=== PATIENT | female | born 1960 | race Caucasian/White ===

== ENCOUNTER 2019-12-24 04:38 | Emergency (ER) | payer MEDICARE, MEDICAID, SELFPAY ==
[2019-12-24 04:43] VITALS: BP 183/93; PULSE 92; RESP 92; TEMP 36.9; O2SAT 99; BMI 29.7
--- NOTE | 2019-12-24 04:57 | PC.NURSE ---
Addendum entered by Delmi Arango RN 12/24/19 05:00: Patient also upset that social security cut her check $240 dollars causing stress. Original Note: Patient appears very anxious at this time. Crying stating that her daughter talking bad to her and not letting her see her grandkids is causing her stress and resulting in her abdominal pain. States she has a hiatal hernia
--- NOTE | 2019-12-24 05:02 | W.ED.ABDPA2 ---
Documented by User: Elkin Lu MD 12/24/19 08:04 HPI - Abdominal Pain General: Chief Complaint: Abdominal Pain Stated Complaint: ABD PAIN Time Seen by Provider: 12/24/19 04:54 Source: patient Mode of arrival: ambulatory Limitations: no limitations History of Present Illness: HPI narrative: Tasia is a 59-year-old female who states she has had upper abdominal pain for the last month. She states that she does have a history of hiatal hernia and has cramping pain. States she is also had a lot of stress is very anxious. She states her pain is intermittent in nature. She denies any worsening or improving factors. Her pain is currently a 5 out of 10. She has had no vomiting or diarrhea. MD elicited complaint: abdominal pain Pertinent past history: none Onset (ago): day(s) Location: Diffuse Severity: moderate Quality: cramping Radiation: none Associated Symptoms: Reports nausea; Denies chills, diarrhea, dysuria, fever(s) and vomiting Review of Systems Const: Denies: fever, chills, body aches or change in appetite Eyes: Denies: blurry vision or eye discomfort ENMT: Denies: throat pain or dental pain Card: Denies: chest pain Resp: Denies: shortness of breath GI: Reports: abdominal pain and nausea; Denies: vomiting or diarrhea : Denies: painful urination Musc: Denies: neck pain or back pain Skin/Breast: Denies: rash Neuro: Denies: headache Psych: Reports: anxiety; Denies: depression Cj/Lymph: Denies: easy bruising All/Imm: Denies: hives PFSH ED PFSH: Statuses (acute, chronic, etc) shown below reflect problem list status as previously entered and may not be historically accurate Social History Smoking and tobacco status: current every day smoker Physical Exam Const: COMMON NORMALS: no apparent distress, oriented x3 and healthy appearing HENMT: COMMON NORMALS: normocephalic and head/scalp atraumatic HEAD & SCALP: normocephalic and atraumatic Eye: COMMON NORMALS: PERRL and EOMs intact bilaterally PUPIL: Yes PERRL Neck/C-Spine: COMMON NORMALS: full ROM and supple Chest: COMMONS NORMALS: inspection of chest normal and palpation of chest normal Resp: COMMON NORMALS: normal respiratory effort, no retractions, no use of accessory muscles and clear to auscultation bilaterally AUSCULTATION: clear to auscultation bilaterally Cardio: COMMON NORMALS: regular rate, regular rhythm and no murmurs RATE: regular rate RHYTHM: regular rhythm GI: COMMON NORMALS: normal to inspection, nondistended, normoactive bowel sounds, soft to palpation, non-tender and no masses PALPATION: Yes soft Extremity: COMMON NORMALS: normal to inspection and full ROM Neuro: COMMON NORMALS: oriented x3, moves all extremities and no focal motor deficits Psych: COMMON NORMALS: mental status grossly normal, thought process normal and cooperative THOUGHT PROCESS: normal thought process Skin: COMMON NORMALS: no rashes or lesions noted and no wounds GENERAL SKIN EXAM: no rashes or lesions noted Course Vital Signs: Vital signs: Vital Signs Temperature 98 F 12/24/19 08:02 Pulse Rate 88 12/24/19 08:02 Respiratory Rate 20 H 12/24/19 08:02 Blood Pressure 144/104 12/24/19 08:02 Pulse Oximetry 97 12/24/19 08:02 MDM - Abdominal Pain MDM Narrative: Medical decision making narrative: Patient presents here with abdominal pain along with stress. She is well-appearing here and we will start her on Vistaril for her anxiety. She is to follow-up with her primary care doctor in 3 to [address] scan here is normal. She is to return if worsening. Lab Data: Labs: Lab Results 12/24/19 12/24/19 12/24/19 Range/Units 05:57 05:57 06:00 WBC 7.9 (4.0-10.0) 10^3/ uL RBC 4.42 (4.1-5.3) 10^6/u L Hgb 13.7 (11.5-15.3) g/dL Hct 41.5 (37.0-47.0) % MCV 93.9 (81-99) fL MCH 31.0 (28.0-34.0) pg MCHC 33.0 (30.0-36.0) g/dL RDW 12.4 (12.1-15.1) % Plt Count 183 (130-400) 10^3/c mm MPV 10.6 H (7.4-10.4) fL Neut % (Auto) 52.3 % Lymph % (Auto) 35.5 % [place] % (Auto) 9.0 % Eos % (Auto) 2.2 % Baso % (Auto) 0.6 % Neut # (Auto) 4.1 (1.8-7.7) 10^3/u L Lymph # (Auto) 2.8 (0.8-4.8) 10^3/u L [place] # (Auto) 0.7 (0.2-0.9) 10^3/u L Eos # (Auto) 0.2 (0.0-0.8) 10^3/u L Baso # (Auto) 0.1 (0.0-0.1) 10^3/u L Nucleated RBC % (a uto) 0 % Nucleated RBCs # 0.0 /100WBC Sodium 142 (136-145) mmol/L Potassium 4.6 (3.5-5.1) mmol/L Chloride 105 (98-107) mmol/L Carbon Dioxide 27 (22-29) mmol/L Anion Gap 14.6 (5-19) BUN 11 (8-23) mg/dL Creatinine 0.9 (0.5-0.9) mg/dL GFR Calculation 63.7 L (90-130) mL/min Glucose 115 H (74-106) mg/dL Calcium 10.2 (8.5-10.5) mg/dL Total Bilirubin 0.6 (0.15-1.2) mg/dL AST 27 (0-32) U/L ALT 25 (0-33) U/L Alkaline Phosphata se 118 H (35-105) IU/L Total Protein 8.2 (6.6-8.7) g/dL Albumin 4.4 (3.5-5.2) g/dL Globulin 3.8 (1.3-4.6) g/dL Lipase 8 L (13-60) U/L Urine Color Yellow (Yellow) Urine Appearance Sl hazy (CLEAR) Urine pH 8 H (5-7) Ur Specific Gravit y 1.010 (1.005-1.030) Urine Protein Neg (Negative) Urine Glucose (UA) Norm (Normal) Urine Ketones Negative (Negative) Urine Occult Blood Neg (Negative) Urine Nitrate Negative (Negative) Urine Bilirubin Neg (NEGATIVE) Urine Urobilinogen Norm (Negative) mg/dL Ur Leukocyte Lisa ase Negative (Negative) Urine RBC 0-4 H (0-2) /hpf Urine WBC 10-15 H (0-5) /hpf Ur Squamous Epith Cells 15-25 H (0-5) Amorphous Sediment 1+ Urine Bacteria 1+ H (NONE) Urine Mucus Trace Imaging Data ^: CT Abd/Pel: Radiologist's impression: [address] [place] [address] CT Scan Report Signed Patient: Tasia Askew Unit #: [id number] : 1960 Age/Sex: 59 / F ADM Date: 12/24/19 Loc: ER Room/Bed: Attending Dr: Ordering Provider/Ordering MD: Angelito Duran DO Date of Service: 12/24/19 Procedure(s): CT abdomen pelvis w con* [id number] Accession Number(s): [id number] Report Number: [id number] PROCEDURE INFORMATION: Exam: CT Abdomen And Pelvis With Contrast Exam date and time: 12/24/2019 6:30 AM Age: 59 years old Clinical indication: Abdominal pain; Acute; Prior surgery; Surgery date: 6+ months; Surgery type: Tubal; Additional info: Abd pain TECHNIQUE: Imaging protocol: Computed tomography of the abdomen and pelvis with intravenous contrast. Total DLP: 1286.68 mGy-cm Radiation optimization: All CT scans at this facility use at least one of these dose optimization techniques: automated exposure control; mA and/or kV adjustment per patient size (includes targeted exams where dose is matched to clinical indication); or iterative reconstruction. Contrast material: OMNI 300; Contrast volume: 95 ml; Contrast route: IV; COMPARISON: CT abdomen pelvis w con* [id number] 09/24/2019 12:41 PM FINDINGS: Lungs: Interstitial prominence and trace dependent airspace disease. Liver: Punctate hepatic granuloma. Gallbladder and bile ducts: No cholelithiasis or biliary ductal dilatation. Pancreas: Inhomogeneous attenuation in the pancreatic head without focal mass or ductal dilatation. Spleen: No splenomegaly. Adrenals: Unremarkable adrenals. Kidneys and ureters: Normal renal morphology. No hydronephrosis. Stomach and bowel: Mild wall thickening in the nondistended stomach. Jejunal dilatation without a focal transition zone. Prominent stool. Diverticula, without pericolonic inflammation. Appendix: No acute appendicitis. Intraperitoneal space: No significant free fluid. Vasculature: Normal caliber of the abdominal aorta. Lymph nodes: No pathologically enlarged lymph nodes. Bladder: Nondistended bladder. Reproductive: Unremarkable as visualized. Bones/joints: Osteopenia, degenerative change, ligamentous calcification, and disc bulging. Soft tissues: Calcification at the gluteal muscle attachment sites. CT/CT abdomen pelvis w con* [id number] IMPRESSION: 1. Mild wall thickening in the nondistended stomach. 2. Jejunal dilatation without a focal transition zone. 3.Additional findings as described above. Discharge Plan Discharge Patient Disposition: Home, Self-Care Clinical Impression: Anxiety Abdominal pain Qualifiers: Abdominal location: generalized Qualified Code(s): R10.84 - Generalized abdominal pain Condition: Stable Prescriptions: New Reglan 10 mg tablet 10 mg PO Q6H PRN (Reason: nausea and vomiting) Qty: 20 RF: 0 Vistaril 50 mg capsule 50 mg PO Q8H PRN (Reason: anxiety) Qty: 20 RF: 0 Discharge Orders: Discharge Order (Routine); Ordered 12/24/19 Ordered By: Elkin Lu Referrals: Kulwant Musa [Family Provider] - Discharge Diet: Advance as tolerated Discharge Activity: Resume usual activity Patient Instructions: Abdominal Pain (ED) Discharge Date/Time: 12/24/19 08:03 Coding Level of Care Code ED Intelligence Specialist for Chg Fwd Exam Problem Focused Documented by User: Angelito Duran DO 12/25/19 01:18 HPI - Abdominal Pain General: Chief Complaint: Abdominal Pain Stated Complaint: ABD PAIN Time Seen by Provider: 12/24/19 04:54 PFSH ED PFSH: Statuses (acute, chronic, etc) shown below reflect problem list status as previously entered and may not be historically accurate Social History Smoking and tobacco status: current every day smoker Course Vital Signs: Vital signs: Vital Signs Temperature 98 F 12/24/19 08:02 Pulse Rate 88 12/24/19 08:02 Respiratory Rate 20 H 02/01/20 08:02 Blood Pressure 144/104 12/24/19 08:02 Pulse Oximetry 97 12/24/19 08:02 MDM - Abdominal Pain Lab Data: Labs: Lab Results 12/24/19 12/24/19 12/24/19 Range/Units 05:57 05:57 06:00 WBC 7.9 (4.0-10.0) 10^3/ uL RBC 4.42 (4.1-5.3) 10^6/u L Hgb 13.7 (11.5-15.3) g/dL Hct 41.5 (37.0-47.0) % MCV 93.9 (81-99) fL MCH 31.0 (28.0-34.0) pg MCHC 33.0 (30.0-36.0) g/dL RDW 12.4 (12.1-15.1) % Plt Count 183 (130-400) 10^3/c mm MPV 10.6 H (7.4-10.4) fL Neut % (Auto) 52.3 % Lymph % (Auto) 35.5 % [place] % (Auto) 9.0 % Eos % (Auto) 2.2 % Baso % (Auto) 0.6 % Neut # (Auto) 4.1 (1.8-7.7) 10^3/u L Lymph # (Auto) 2.8 (0.8-4.8) 10^3/u L [place] # (Auto) 0.7 (0.2-0.9) 10^3/u L Eos # (Auto) 0.2 (0.0-0.8) 10^3/u L Baso # (Auto) 0.1 (0.0-0.1) 10^3/u L Nucleated RBC % (a uto) 0 % Nucleated RBCs # 0.0 /100WBC Sodium 142 (136-145) mmol/L Potassium 4.6 (3.5-5.1) mmol/L Chloride 105 (98-107) mmol/L Carbon Dioxide 27 (22-29) mmol/L Anion Gap 14.6 (5-19) BUN 11 (8-23) mg/dL Creatinine 0.9 (0.5-0.9) mg/dL GFR Calculation 63.7 L (90-130) mL/min Glucose 115 H (74-106) mg/dL Calcium 10.2 (8.5-10.5) mg/dL Total Bilirubin 0.6 (0.15-1.2) mg/dL AST 27 (0-32) U/L ALT 25 (0-33) U/L Alkaline Phosphata se 118 H (35-105) IU/L Total Protein 8.2 (6.6-8.7) g/dL Albumin 4.4 (3.5-5.2) g/dL Globulin 3.8 (1.3-4.6) g/dL Lipase 8 L (13-60) U/L Urine Color Yellow (Yellow) Urine Appearance Sl hazy (CLEAR) Urine pH 8 H (5-7) Ur Specific Gravit y 1.010 (1.005-1.030) Urine Protein Neg (Negative) Urine Glucose (UA) Norm (Normal) Urine Ketones Negative (Negative) Urine Occult Blood Neg (Negative) Urine Nitrate Negative (Negative) Urine Bilirubin Neg (NEGATIVE) Urine Urobilinogen Norm (Negative) mg/dL Ur Leukocyte Lisa ase Negative (Negative) Urine RBC 0-4 H (0-2) /hpf Urine WBC 10-15 H (0-5) /hpf Ur Squamous Epith Cells 15-25 H (0-5) Amorphous Sediment 1+ Urine Bacteria 1+ H (NONE) Urine Mucus Trace Discharge Plan Discharge Patient Disposition: Home, Self-Care Clinical Impression: Anxiety Abdominal pain Qualifiers: Abdominal location: generalized Qualified Code(s): R10.84 - Generalized abdominal pain Condition: Stable Prescriptions: New Reglan 10 mg tablet 10 mg PO Q6H PRN (Reason: nausea and vomiting) Qty: 20 RF: 0 Vistaril 50 mg capsule 50 mg PO Q8H PRN (Reason: anxiety) Qty: 20 RF: 0 Discharge Orders: Discharge Order (Routine); Ordered 12/24/19 Ordered By: Elkin Lu Referrals: Kulwant Musa [Family Provider] - Discharge Diet: Advance as tolerated Discharge Activity: Resume usual activity Patient Instructions: Abdominal Pain (ED) Discharge Date/Time: 12/24/19 08:03 Coding Level of Care Code ED Intelligence Specialist for Chg Fwd Exam Problem Focused
--- NOTE | 2019-12-24 05:50 | CTR_ITS ---
PROCEDURE INFORMATION: Exam: CT Abdomen And Pelvis With Contrast Exam date and time: 12/24/2019 6:30 AM Age: 59 years old Clinical indication: Abdominal pain; Acute; Prior surgery; Surgery date: 6+ months; Surgery type: Tubal; Additional info: Abd pain TECHNIQUE: Imaging protocol: Computed tomography of the abdomen and pelvis with intravenous contrast. Total DLP: 1286.68 mGy-cm Radiation optimization: All CT scans at this facility use at least one of these dose optimization techniques: automated exposure control; mA and/or kV adjustment per patient size (includes targeted exams where dose is matched to clinical indication); or iterative reconstruction. Contrast material: OMNI 300; Contrast volume: 95 ml; Contrast route: IV; COMPARISON: CT abdomen pelvis w con* [id number] 09/24/2019 12:41 PM FINDINGS: Lungs: Interstitial prominence and trace dependent airspace disease. Liver: Punctate hepatic granuloma. Gallbladder and bile ducts: No cholelithiasis or biliary ductal dilatation. Pancreas: Inhomogeneous attenuation in the pancreatic head without focal mass or ductal dilatation. Spleen: No splenomegaly. Adrenals: Unremarkable adrenals. Kidneys and ureters: Normal renal morphology. No hydronephrosis. Stomach and bowel: Mild wall thickening in the nondistended stomach. Jejunal dilatation without a focal transition zone. Prominent stool. Diverticula, without pericolonic inflammation. Appendix: No acute appendicitis. Intraperitoneal space: No significant free fluid. Vasculature: Normal caliber of the abdominal aorta. Lymph nodes: No pathologically enlarged lymph nodes. Bladder: Nondistended bladder. Reproductive: Unremarkable as visualized. Bones/joints: Osteopenia, degenerative change, ligamentous calcification, and disc bulging. Soft tissues: Calcification at the gluteal muscle attachment sites. CT/CT abdomen pelvis w con* [id number] IMPRESSION: 1. Mild wall thickening in the nondistended stomach. 2. Jejunal dilatation without a focal transition zone. 3.Additional findings as described above. Radiation Dose CTDIVOL = (mGy): DLP = 1286.68 (mGy-cm)
[2019-12-24 05:57] VITALS: RESP 18
[2019-12-24] MEDS: ondansetron 2 mg/ML SDV 2 mL 4 MG IVP (05:57)
[2019-12-24] MEDS: morphine 4 mg/mL SDV 1 mL IVP (05:57)
[2019-12-24 06:02] LABS: Basophils # 0.1 10^3/uL (0.0-0.1); Basophils % 0.6 %; Eosinophils # 0.2 10^3/uL (0.0-0.8); Eosinophils % 2.2 %; Hematocrit 41.5 % (37.0-47.0); Hemoglobin 13.7 g/dL (11.5-15.3); Lymphocytes # 2.8 10^3/uL (0.8-4.8); Lymphocytes % 35.5 %; Mean Corpuscular Volume 93.9 fL (81-99); Mean Platelet Volume 10.6 fL (7.4-10.4); Monocytes # 0.7 10^3/uL (0.2-0.9); Neutrophils # 4.1 10^3/uL (1.8-7.7); Neutrophils % 52.3 %; Nucleated Red Blood Cells % 0 %; Platelet Count 183 10^3/cmm (130-400); Red Blood Count 4.42 10^6/uL (4.1-5.3); Red Cell Distribution Width 12.4 % (12.1-15.1); White Blood Count 7.9 10^3/uL (4.0-10.0)
[2019-12-24 06:21] LABS: Alanine Aminotransferase 25 U/L (0-33); Albumin Level 4.4 g/dL (3.5-5.2); Alkaline Phosphatase 118 IU/L (35-105); Anion Gap 14.6 (5-19); Aspartate Amino Transferase 27 U/L (0-32); Blood Urea Nitrogen 11 mg/dL (8-23); Calcium 10.2 mg/dL (8.5-10.5); Carbon Dioxide 27 mmol/L (22-29); Chloride 105 mmol/L (98-107); Globulin 3.8 g/dL (1.3-4.6); Glomerular Filtration Rate 63.7 mL/min (90-130); Glucose 115 mg/dL (74-106); Potassium 4.6 mmol/L (3.5-5.1); Sodium 142 mmol/L (136-145); Total Bilirubin 0.6 mg/dL (0.15-1.2); Total Protein 8.2 g/dL (6.6-8.7)
[2019-12-24 06:44] LABS: Lipase 8 U/L (13-60)
[2019-12-24] MEDS: iohexol 300 mg/mL 100 mL Btl IV (06:51)
[2019-12-24 07:06] LABS: Urine Appearance SL Hazy (CLEAR); Urine Color Yellow (Yellow); pH Urine 8 (5-7)
[2019-12-24 07:07] LABS: Add Urine Microscopic? YES; Bilirubin Urine Neg (NEGATIVE); Blood Urine Neg (Negative); Glucose Urine UA Norm (Normal); Ketones Urine Negative (Negative); Leukocyte Esterase Urine Negative (Negative); Nitrate Urine Negative (Negative); Protein Urine Neg (Negative); Urobilinogen Urine Norm (Negative)
[2019-12-24 07:09] LABS: Mucus Urine TRACE; RBC Urine 0-4 /hpf (0-2)
[2019-12-24 07:10] LABS: Add Urine Culture? No; Amorphous Sediment Urine 1+; Bacteria Urine 1+; Squamous Epithelial Cell Urine 15-25 (0-5)
--- NOTE | 2019-12-24 07:21 | PC.NURSE ---
Pt ambulated to and from restroom with steady gait at this time.
[2019-12-24 08:02] VITALS: BP 144/104; PULSE 88; RESP 20; TEMP 36.6; O2SAT 97
== END 2019-12-24 08:03 | disposition home or self-care (01) ==
PROVIDERS: Emergency Medicine; Emergency Provider Emergency Medicine; Family Provider Family Medicine
DX: R10.84 Generalized abdominal pain (principal); F41.9 Anxiety disorder, unspecified; F17.210 Nicotine dependence, cigarettes, uncomplicated
CPT/HCPCS: 74177; 80053; 81001; 83690; 85025; 96374; 96375; 99283; A9270; J2270; J2405; Q9967

== ENCOUNTER 2019-12-26 12:13 | Emergency (ER) | payer MEDICARE, SELFPAY ==
[2019-12-26 12:17] VITALS: BP 193/114; PULSE 86; RESP 20; TEMP 36.8; O2SAT 97; BMI 29.0
--- NOTE | 2019-12-26 14:11 | ECG_ITS ---
Measurements Intervals [place] Rate: 77 P: 62 TX: 175 QRS: 51 QRSD: 84 T: 35 QT: 376 QTc: 427 SINUS RHYTHM Compared to ECG 09/04/2019 16:08:00 No significant changes Electronically Signed On 12-26-2019 21:01:44 ROTARY EN[employer]ELOPE MACHINE OPERATOR by Max Levine M.D. [email or web address]
--- NOTE | 2019-12-26 14:11 | XRR_ITS ---
PROCEDURE INFORMATION: Exam: XR Chest, 1 View Exam date and time: 12/26/2019 3:28 PM Age: 59 years old Clinical indication: Type not specified; Patient HX: Chest pain, started this am; Additional info: Cp TECHNIQUE: Imaging protocol: XR of the chest Views: 1 view. COMPARISON: CR Chest 1 [place] [id number] 09/04/2019 1:21 PM FINDINGS: Lungs: Unremarkable. No consolidation. Pleural space: Unremarkable. No pleural effusion. No pneumothorax. Heart/Mediastinum: Unremarkable. No cardiomegaly. Bones/joints: Unremarkable. XR/XR chest 1V portable [id number] IMPRESSION: No acute findings.
[2019-12-26 14:38] LABS: Basophils # 0.1 10^3/uL (0.0-0.1); Basophils % 0.8 %; Eosinophils # 0.2 10^3/uL (0.0-0.8); Eosinophils % 2.7 %; Hematocrit 40.8 % (37.0-47.0); Hemoglobin 13.4 g/dL (11.5-15.3); Lymphocytes # 1.9 10^3/uL (0.8-4.8); Lymphocytes % 26.3 %; Mean Corpuscular HGB Conc 32.8 g/dL (30.0-36.0); Mean Corpuscular Hemoglobin 30.9 pg (28.0-34.0); Mean Corpuscular Volume 94.2 fL (81-99); Mean Platelet Volume 10.6 fL (7.4-10.4); Monocytes # 0.6 10^3/uL (0.2-0.9); Monocytes % 8.6 %; Neutrophils # 4.5 10^3/uL (1.8-7.7); Neutrophils % 61.1 %; Nucleated Red Blood Cells % 0 %; Platelet Count 182 10^3/cmm (130-400); Red Blood Count 4.33 10^6/uL (4.1-5.3); Red Cell Distribution Width 11.9 % (12.1-15.1); White Blood Count 7.3 10^3/uL (4.0-10.0)
[2019-12-26 14:52] LABS: Alanine Aminotransferase 18 U/L (0-33); Alkaline Phosphatase 116 IU/L (35-105); Aspartate Amino Transferase 19 U/L (0-32); Blood Urea Nitrogen 8 mg/dL (8-23); Calcium 9.4 mg/dL (8.5-10.5); Carbon Dioxide 26 mmol/L (22-29); Chloride 101 mmol/L (98-107); Globulin 3.9 g/dL (1.3-4.6); Glomerular Filtration Rate 56.4 mL/min (90-130); Glucose 128 mg/dL (74-106); Lipase 10 U/L (13-60); Sodium 138 mmol/L (136-145); Total Bilirubin 1.2 mg/dL (0.15-1.2); Total Protein 7.9 g/dL (6.6-8.7); Troponin(5th) Baseline 10 ng/mL (0-10)
== END 2019-12-26 16:30 | disposition left against medical advice (07) ==
LOC: ER 14:52
PROVIDERS: Emergency Medicine; Emergency Provider Registered Nurse; Family Provider Family Medicine
DX: Z53.21 Procedure and treatment not carried out due to patient leaving prior to being seen by health care provider (principal)
CPT/HCPCS: 36415; 71045; 80053; 83690; 84484; 85025; 93005; 99281; 99283

== ENCOUNTER 2020-04-25 11:26 | Emergency (ER) | payer MEDICARE, SELFPAY ==
[2020-04-25 11:38] VITALS: BP 199/120; PULSE 73; RESP 18; TEMP 36.7; O2SAT 96; BMI 33.6
[2020-04-25 12:11] VITALS: BP 170/97; PULSE 71; RESP 18; O2SAT 97
--- NOTE | 2020-04-25 12:11 | XR_ITS ---
WS: [id number] [place] [id number] REASON FOR EXAM: trauma FINDINGS: Degenerate changes of the acromioclavicular joint. The glenoid humeral articulations normal. The scapula and clavicle are normal. XR/[place] [id number] IMPRESSION: Degenerate changes of the acromioclavicular joint.
--- NOTE | 2020-04-25 12:11 | XR_ITS ---
WS: [id number] XR knee LT 3V* [id number] REASON FOR EXAM: trauma FINDINGS: The meniscal spaces are normal. The patella shows degenerates spurring. The patella femoral articulations are normal. The patella tibial spaces are normal. There is no fractures the femur, patella, tibia or fibula. XR/XR knee LT 3V* [id number] IMPRESSION: Mild osteoarthritic changes of the patella.
--- NOTE | 2020-04-25 12:11 | XR_ITS ---
WS: [id number] XR shoulder LT min 2V* [id number] REASON FOR EXAM: trauma FINDINGS: Hypertrophy of the acromioclavicular joint. The glenoid humeral articulations are normal. The clavicle shows no fractures. The body of the scapula was normal. XR/XR shoulder LT min 2V* [id number] IMPRESSION: Degenerate changes of the acromioclavicular joint.
--- NOTE | 2020-04-25 12:11 | XR_ITS ---
WS: [id number] [place] [id number] REASON FOR EXAM: trauma FINDINGS: Views of the left humerus show no fractures or displacement the overall alignment is satisf actory. No soft tissue masses or calcification. XR/[place] [id number] IMPRESSION: Negative left humerus.
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
[2020-04-25] MEDS: ketorolac 30 mg/mL INJ 60 MG IM (12:19)
[2020-04-25 12:35] LABS: Basophils % 0.5 %; Eosinophils # 0.1 10^3/uL (0.0-0.8); Eosinophils % 0.8 %; Hematocrit 43.2 % (37.0-47.0); Hemoglobin 13.9 g/dL (11.5-15.3); Lymphocytes # 1.8 10^3/uL (0.8-4.8); Lymphocytes % 21.2 %; Mean Corpuscular HGB Conc 32.2 g/dL (30.0-36.0); Mean Corpuscular Hemoglobin 31.5 pg (28.0-34.0); Mean Platelet Volume 10.7 fL (7.4-10.4); Monocytes # 0.6 10^3/uL (0.2-0.9); Monocytes % 6.6 %; Neutrophils # 6.1 10^3/uL (1.8-7.7); Neutrophils % 70.6 %; Nucleated Red Blood Cells % 0 %; Platelet Count 169 10^3/cmm (130-400); Red Blood Count 4.41 10^6/uL (4.1-5.3); Red Cell Distribution Width 13.2 % (12.1-15.1); White Blood Count 8.6 10^3/uL (4.0-10.0)
[2020-04-25 12:50] LABS: Alanine Aminotransferase 16 U/L (0-33); Albumin Level 4.2 g/dL (3.5-5.2); Alkaline Phosphatase 116 IU/L (35-105); Anion Gap 15.9 (5-19); Aspartate Amino Transferase 18 U/L (0-32); Blood Urea Nitrogen 12 mg/dL (8-23); Calcium 9.4 mg/dL (8.5-10.5); Carbon Dioxide 24 mmol/L (22-29); Chloride 105 mmol/L (98-107); Globulin 3.3 g/dL (1.3-4.6); Glomerular Filtration Rate 72.7 mL/min (90-130); Glucose 120 mg/dL (65-115); Osmolality Calculated 289 mOsm/kg (285-295); Potassium 3.9 mmol/L (3.5-5.1); Sodium 141 mmol/L (136-145); Total Bilirubin 1.1 mg/dL (0.15-1.2); Total Protein 7.5 g/dL (6.6-8.7)
[2020-04-25 13:47] VITALS: BP 161/103; PULSE 65; RESP 18; O2SAT 96
== END 2020-04-25 13:48 | disposition home or self-care (01) ==
PROVIDERS: Emergency Provider Family Medicine; PCP Family Medicine
DX: S43.402A Unspecified sprain of left shoulder joint, initial encounter (principal); S83.92XA Sprain of unspecified site of left knee, initial encounter; Y04.2XXA Assault by strike against or bumped into by another person, initial encounter; F17.210 Nicotine dependence, cigarettes, uncomplicated
CPT/HCPCS: 12345; 36415; 73000; 73030; 73060; 73562; 80053; 85025; 96372; 99282; 99283; J1885

== ENCOUNTER 2020-07-14 09:54 | Emergency (ER) | payer MEDICARE, SELFPAY ==
[2020-07-14] VITALS (7 sets, daily range): BP systolic 136–162; BP diastolic 70–90; PULSE 64–76; RESP 16–18; TEMP 36.4–36.9; O2SAT 96–99; BMI 34.4
--- NOTE | 2020-07-14 10:15 | ED_ITS ---
HPI - Female Genitourinary General: Chief complaint: Urogenital-Female Stated complaint: dysuria, flank pain Time Seen by Provider: 07/14/20 10:13 Source: patient Mode of arrival: ambulatory Limitations: no limitations History of Present Illness: HPI Narrative: 3 weeks difficulty with urinating, increasing symptoms MD elicited complaint: dysuria and UTI Associated symptoms: Reports nausea (intermittent ) Review of Systems General: Reports: 10 or more systems reviewed and unremarkable except in HPI and below Const: Reports: fever(s) (intermittent, low grade x 2 nights) GI: Reports: nausea (intermittent ) : Reports: flank pain (left flank ), difficulty voiding, dysuria, urinary frequency and urinary urgency PFS ED PFSH: Medical History Grossman esophagus Family History Mother Diabetes Social History Smoking and tobacco status: current every day smoker Alcohol intake: former Substance/Drug Use: former History of recent travel: No Current gender identity: Female Physical Exam Const: COMMON NORMALS: no acute distress, patient oriented x3, no limitations and alert GENERAL APPEARANCE: cooperative and comfortable ORIENTATION/CONSCIOUSNESS: Yes awake, Yes oriented to person, Yes oriented to place and Yes oriented to time HENMT: COMMON NORMALS: normocephalic, atraumatic, external ears normal, EAC's normal, TM's normal bilaterally and Normal external nose present HEAD & SCALP: normal to inspection, normocephalic and atraumatic FACE & SINUS: normal facial exam, sinuses nontender and face symmetric NOSE: Normal external nose present, Normal nares present and No nasal discharge present EXTERNAL EAR: Yes external ears normal EXTERNAL AUDITORY CANAL: EAC's normal TYMPANIC MEMBRANE: TM's normal bilaterally MOUTH: Normal oral and palatal mucosa present, lip normal and tongue normal THROAT: posterior oropharynx normal, tonsils normal and uvula midline Eye: COMMON NORMALS: Equal, round and reactive pupils present, EOMs intact bilaterally and conjunctivae normal GENERAL EYE: appearance normal, both eyes and all related structures and normal light reflex EYELID: eyelids normal CONJUNCTIVA: Yes conjunctivae normal PUPIL: Yes Equal, round and reactive pupils present EOM: Yes EOM abnormal DIRECT OPHTHALMOSCOPY: Yes normal l ight reflex Neck/C-Spine: COMMON NORMALS: full ROM, no lymphadenopathy, supple, no meningeal signs, no JVD and Thyroid normal GENERAL: Yes normal visual inspection THYROID: Thyroid normal CERVICAL SPINE: Yes cervical ROM normal and Yes normal cervical lordosis Lymph: LYMPHATIC: no lymphadenopathy noted Chest: COMMONS NORMALS: normal inspection of the chest and normal palpation of entire chest wall Resp: COMMON NORMALS: normal respiratory effort, No retractions and clear to auscultation bilaterally AUSCULTATION: clear to auscultation bilaterally Cardio: COMMON NORMALS: no JVD, regular rate, regular rhythm, S1 normal heart sound present, S2 normal heart sound present, No gallops present (Cardio), No clicks present (Cardio), No murmurs present (Cardio), No rub (Cardio) and Peripheral pulses 2+ throughout RATE: regular rate RHYTHM: regular rhythm HEART SOUNDS: S1 normal heart sound present and S2 normal heart sound present PERIPHERAL PULSES: Peripheral pulses 2+ throughout GI: COMMON NORMALS: Normal to inspection, nondistended, normoactive bowel sounds present, Soft to palpation, non-tender and no masses PALPATION: Yes Soft to palpation : COMMON NORMALS: Yes no CVA tenderness and Yes normal external appearance BLADDER/KIDNEY EXAM: Yes no CVA tenderness Back/Pelvis: COMMON NORMALS: no CVA tenderness, thoracic and lumbar spine normal to inspection, no thoracic nor lumbar tenderness and thoraco-lumbar ROM normal Extremity: COMMON NORMALS: normal to inspection, full ROM, capillary refill normal, no joint enlargement, no clubbing, cyanosis or edema, no calf tenderness and no pedal edema GENERAL: Yes normal exam except as noted Neuro: COMMON NORMALS: patient oriented x3, moves all extremities, no focal motor deficits, no sensory deficits noted and gait normal SENSORIUM/ORIENTATION: Yes alert, Yes oriented to person, Yes oriented to place and Yes oriented to time MENINGEAL SIGNS: Yes no meningeal signs Psych: COMMON NORMALS: mental status grossly normal, Normal thought process present, cooperative, normal affect, speech normal and activity/motor behavior normal SPEECH: Yes normal speech THOUGHT PROCESS: Normal thought process present Skin: COMMON NORMALS: no rashes or lesions noted, no wounds and turgor normal GENERAL SKIN EXAM: no rashes or lesions noted and turgor normal Course ED course: Pt complains of dysuria and urgency with voiding increasing x 3 weeks and not improving despite home remedies with less soda and more water and cranberry juice. Urine and labs ordered; IV fluids and pain medication. Reevaluation(s): Reevaluation #1: CBC labs do not indicate infection; urine sent for culture and will treat empirically. US renal to rule out any acute blockages or stones due to increasing left flank pain. Creatinine 1.0./GFR 56. Time: 12:12 Reevaluation #2: Renal US are normal bilaterally. Will proceed with DC and treatment for UTI while waiting for culture. Increase fluid intake. Time: 14:01 Vital Signs: Vital signs: Vital Signs Temperature 98.4 F 07/14/20 13:12 Pulse Rate 64 07/14/20 13:12 Respiratory Rate 18 07/14/20 13:12 Blood Pressure 144/70 07/14/20 13:12 Pulse Oximetry 99 07/14/20 13:12 MDM - Female Lab Data: Labs: Lab Results 07/14/20 07/14/20 07/14/20 Range/Units 10:21 10:21 10:45 WBC 7.8 (4.0-10.0) 10^3/ uL RBC 4.70 (4.1-5.3) 10^6/u L Hgb 14.6 (11.5-15.3) g/dL Hct 44.8 (37.0-47.0) % MCV 95.3 (81-99) fL MCH 31.1 (28.0-34.0) pg MCHC 32.6 (30.0-36.0) g/dL RDW 11.9 L (12.1-15.1) % Plt Count 167 (130-400) 10^3/c mm MPV 11.1 H (7.4-10.4) fL Neut % (Auto) 59.0 % Lymph % (Auto) 29.8 % [place] % (Auto) 8.0 % Eos % (Auto) 1.9 % Baso % (Auto) 0.9 % Neut # (Auto) 4.62 (1.8-7.7) 10^3/u L Lymph # (Auto) 2.3 (0.8-4.8) 10^3/u L [place] # (Auto) 0.6 (0.2-0.9) 10^3/u L Eos # (Auto) 0.2 (0.0-0.8) 10^3/u L Baso # (Auto) 0.1 (0.0-0.1) 10^3/u L Nucleated RBC % (a uto) 0 % Nucleated RBCs # 0.0 /100WBC Sodium 136 (136-145) mmol/L Potassium 4.3 (3.5-5.1) mmol/L Chloride 103 (98-107) mmol/L Carbon Dioxide 24 (22-29) mmol/L Anion Gap 13.3 (5-19) BUN 21 (8-23) mg/dL Creatinine 1.0 H (0.5-0.9) mg/dL GFR Calculation 56.2 L (90-130) mL/min Glucose 117 H (65-115) mg/dL Calculated Osmolal ity 280 L (285-295) mOsm/k g Calcium 10.0 (8.5-10.5) mg/dL Total Bilirubin 1.4 H (0.15-1.2) mg/dL AST 18 (0-32) U/L ALT 20 (0-33) U/L Alkaline Phosphata se 113 H (35-105) IU/L Total Protein 7.8 (6.6-8.7) g/dL Albumin 4.5 (3.5-5.2) g/dL Globulin 3.3 (1.3-4.6) g/dL Urine Color Yellow (Yellow) Urine Appearance Clear (CLEAR) Urine pH 5 (5-7) Ur Specific Gravit y 1.020 (1.005-1.030) Urine Protein Neg (Negative) Urine Glucose (UA) Norm (Normal) Urine Ketones Negative (Negative) Urine Blood 2+ H (Negative) Urine Nitrate Negative (Negative) Urine Bilirubin Neg (NEGATIVE) Urine Urobilinogen Norm (Negative) mg/dL Ur Leukocyte Lisa ase Negative (Negative) Urine RBC 0-4 H (0-2) /hpf Urine WBC 5-10 H (0-5) /hpf Ur Squamous Epith Cells 5-10 H (0-5) Amorphous Sediment Not Reportable Urine Bacteria 1+ H (NONE) Discharge Plan Discharge Patient Disposition: Home Clinical Impression: Urinary tract infection Condition: Stable Prescriptions: New nitrofurantoin monohyd/m-cryst [Macrobid] 100 mg capsule 100 mg PO BID 7 Days Qty: 14 RF: 0 phenazopyridine [Pyridium] 200 mg tablet 200 mg PO Q8H Qty: 10 RF: 0 No Action Linzess 290 mcg capsule 290 mcg PO DAILY Qty: 90 RF: 3 Vistaril 50 mg capsule 50 mg PO Q8H PRN (Reason: anxiety) Qty: 90 RF: 0 lisinopril 40 mg tablet 40 mg PO DAILY RF: 0 metoclopramide HCl [Reglan] 10 mg tablet 10 mg PO Q6H PRN (Reason: nausea and vomiting) Qty: 20 RF: 0 Referrals: Kulwant Musa [Primary Care Provider] - Discharge Diet: Usual diet Discharge Activity: Resume usual activity Activity Restrictions/Additional Instructions: Please increase clear fluids and follow up with PCP. Coding Level of Care Code ED Gravity Prospecting Observer for Geovanna Fwd Exam Comprehensive
[2020-07-14 10:27] LABS: Basophils # 0.1 10^3/uL (0.0-0.1); Basophils % 0.9 %; Eosinophils # 0.2 10^3/uL (0.0-0.8); Eosinophils % 1.9 %; Hematocrit 44.8 % (37.0-47.0); Hemoglobin 14.6 g/dL (11.5-15.3); Lymphocytes # 2.3 10^3/uL (0.8-4.8); Lymphocytes % 29.8 %; Mean Corpuscular HGB Conc 32.6 g/dL (30.0-36.0); Mean Corpuscular Hemoglobin 31.1 pg (28.0-34.0); Mean Corpuscular Volume 95.3 fL (81-99); Mean Platelet Volume 11.1 fL (7.4-10.4); Monocytes # 0.6 10^3/uL (0.2-0.9); Neutrophils # 4.62 10^3/uL (1.8-7.7); Nucleated Red Blood Cells % 0 %; Platelet Count 167 10^3/cmm (130-400); Red Cell Distribution Width 11.9 % (12.1-15.1); White Blood Count 7.8 10^3/uL (4.0-10.0)
[2020-07-14 10:49] LABS: Alanine Aminotransferase 20 U/L (0-33); Albumin Level 4.5 g/dL (3.5-5.2); Alkaline Phosphatase 113 IU/L (35-105); Anion Gap 13.3 (5-19); Aspartate Amino Transferase 18 U/L (0-32); Blood Urea Nitrogen 21 mg/dL (8-23); Carbon Dioxide 24 mmol/L (22-29); Chloride 103 mmol/L (98-107); Globulin 3.3 g/dL (1.3-4.6); Glomerular Filtration Rate 56.2 mL/min (90-130); Glucose 117 mg/dL (65-115); Osmolality Calculated 280 mOsm/kg (285-295); Potassium 4.3 mmol/L (3.5-5.1); Sodium 136 mmol/L (136-145); Total Bilirubin 1.4 mg/dL (0.15-1.2); Total Protein 7.8 g/dL (6.6-8.7)
[2020-07-14] MEDS: morphine 4 mg/mL SDV 1 mL IVP (11:00)
[2020-07-14] MEDS: ondansetron 2 mg/ML SDV 2 mL 4 MG IVP (11:00)
[2020-07-14] MEDS: sodium chloride 0.9% 500 ML IV ×3 (11:01→12:28)
[2020-07-14 11:22] LABS: Urine Color Yellow (Yellow)
[2020-07-14 11:23] LABS: Bilirubin Urine Neg (NEGATIVE); Blood Urine 2+ (Negative); Glucose Urine UA Norm (Normal); Ketones Urine Negative (Negative); Leukocyte Esterase Urine Negative (Negative); Nitrate Urine Negative (Negative); Protein Urine Neg (Negative); Urine Appearance Clear (CLEAR); Urobilinogen Urine Norm (Negative); pH Urine 5 (5-7)
[2020-07-14 11:24] LABS: Add Urine Microscopic? YES
[2020-07-14 11:33] LABS: RBC Urine 0-4 /hpf (0-2)
[2020-07-14 11:34] LABS: Add Urine Culture? No; Bacteria Urine 1+
[2020-07-14] MEDS: cefTRIAXone 1,000 MG in sodium chloride 0.9% (plus) 50 ML 100 MG IV (11:52)
--- NOTE | 2020-07-14 12:08 | US_ITS ---
WS: [id number] EXAM: US renal BI* [id number] DATE OF EXAMINATION: 07/14/2020, 1300 hours COMPARISON: None. HISTORY: 60 years old with left flank pain. FINDINGS: Right kidney is estimated at 10.3 x 4.1 x 3.9 cm in size. Cortical thickness and echo characteristics are normal No mass or obstructive uropathy is seen. Left kidney is estimated at 10.5 x 3.9 x 5.9 cm in size. Cortical thickness and echotexture are normal. No mass or obstructive uropathy is seen. Dromedary hum p left kidney. Bladder is partially distended US/US renal BI* [id number] IMPRESSION: NORMAL ULTRASOUND OF THE KIDNEYS.
[2020-07-14] MEDS: HYDROcodone-acetaminophen 5-325 mg Tablet 1 TAB PO (13:26)
== END 2020-07-14 14:38 | disposition home or self-care (01) ==
PROVIDERS: Emergency Provider Nurse Practitioner Family; PCP Family Medicine
DX: N39.0 Urinary tract infection, site not specified (principal); F17.210 Nicotine dependence, cigarettes, uncomplicated
CPT/HCPCS: 12345; 36415; 76770; 80053; 81001; 85025; 96360; 96361; 96365; 96375; 99283; J0696; J2270; J2405; J7040

== ENCOUNTER 2020-07-19 11:34 | Inpatient (IN) | payer MEDICARE, SELFPAY ==
--- NOTE | 2020-07-19 11:37 | XR_ITS ---
WS: [id number] Portable AP upright chest, 07/19/2020 Clinical Data: Chest pain Comparison: Portable chest, 12/26/2019. Findings: No nodules, masses or effusions are seen. The heart is normal. The pulmonary vascularity is not increased. No pneumonia or pneumothorax is seen. The aortic arch and descending aorta show tortu osity. The diaphragms are flattened. There is absence of a small portion of the distal right clavicle . XR/XR chest 1V portable [id number] Impression: Atherosclerosis and hyperinflation.
--- NOTE | 2020-07-19 11:38 | ECG_ITS ---
[facility] Test Date: 2020-07-19 Pat Name: Tasia Askew Department: Room: 128 Gender: Female Manager Telemetry: : 1960 Requested By: Ayana Hope Order Number: [id number] Ann MD: Renee Norton M.D. Measurements Intervals [place] Rate: 69 P: 39 [place]: 179 QRS: 45 QRSD: 85 T: 10 QT: 407 QTc: 437 Interpretive Statements SINUS RHYTHM NONSPECIFIC T-WAVE ABNORMALITY ARTIFACT Compared to ECG 12/26/2019 12:21:17 T-wave abnormality now present Electronically Signed On 07-20-2020 20:30:57 CDT by Renee Norton M.D. [id number]
[2020-07-19 11:39] VITALS: PULSE 76; RESP 18; TEMP 36.9; O2SAT 96; BMI 34.4
--- NOTE | 2020-07-19 12:04 | W.ED.PSYCH ---
HPI - Psych General: Chief Complaint: Psychiatric Symptoms Stated Complaint: SI/ CHEST PAIN Time Seen by Provider: 07/19/20 11:37 Source: patient and EMS Mode of arrival: EMS Limitations: no limitations History of Present Illness: HPI Narrative: Tasia is a 60-year-old female who comes in stating for the past 2 to 3 days she is felt suicidal. She states that she is back on drugs and alcohol again. She does admit to a plan to kill herself including either overdosing, cutting her wrists, or walking out into traffic. Patient has had previous admissions for psychiatric problems. Patient also complains of chest pain that is been present yesterday and today. She states is due to anxiety. She feels her heart pounding and sharp intermittent pains in the left side of her chest. She has associated shortness of breath but she states that is from smoking so heavily the past few days. She denies any additional symptoms such as diaphoresis, nausea or vomiting, radiation of her pain, worse with exertion or any other aggravating or alleviating factor. The pain is been intermittent. Patient claims this is secondary to her anxiety. Review of Systems Const: Denies: fever(s), chills, body aches, fatigue, malaise or diaphoresis Eyes: Denies: change in vision, blurry vision, photophobia, eye discomfort, eye discharge or eye redness ENMT: Denies: throat pain, odynophagia, hoarseness, swelling of lips/tongue, ear or mastoid pain, ear discharge, change in hearing or nasal discharge Card: Denies: palpitations, irregular heart rhythm, edema, lightheadedness, syncope, pre-syncope, dyspnea on exertion or orthopnea Resp: Denies: productive cough, non-productive cough, wheezing, hemoptysis or chest congestion GI: Denies: abdominal pain, nausea, vomiting, hematemesis, coffee ground emesis, heartburn, diarrhea, constipation, GI cramping, hematochezia or melena : Denies: flank pain, dysuria, urinary frequency, urinary urgency or hematuria Musc: Denies: neck pain, back pain, extremity pain, extremity swelling, joint pain, joint swelling, joint redness, joint warmth or joint stiffness Skin/Breast: Denies: rash, pruritus, erythema or skin tenderness Neuro: Denies: headache(s), numbness in extremities, weakness in extremities, sensory changes, lack of coordination, difficulty walking, dizziness, vertigo, confusion, Slurred speech present or seizure-like activity Cj/Lymph: Denies: easy bruising, easy bleeding, petechiae, purpura or enlarged lymph nodes All/Imm: Denies: urticaria, throat swelling, tongue swelling, facial swelling or acute wheezing PFSH ED PFSH: Medical History Grossman esophagus Diabetes Hypertension Surgical History H/O shoulder surgery History of tonsillectomy Family History Mother Diabetes Social History Smoking and tobacco status: current every day smoker Alcohol intake: former History of recent travel: No Current gender identity: Female Physical Exam Const: COMMON NORMALS: no acute distress, patient oriented x3, no limitations, healthy appearing and well nourished GENERAL APPEARANCE: cooperative, well kempt and well developed HENMT: COMMON NORMALS: normocephalic, atraumatic, external ears normal, EAC's normal and Normal external nose present HEAD & SCALP: normal to inspection, normocephalic and atraumatic FACE & SINUS: normal facial exam and face symmetric NOSE: Normal external nose present and Normal nares present EXTERNAL EAR: Yes external ears normal EXTERNAL AUDITORY CANAL: EAC's normal MOUTH: Normal oral and palatal mucosa present, lip normal and tongue normal Eye: COMMON NORMALS: Equal, round and reactive pupils present and conjunctivae normal GENERAL EYE: appearance normal, both eyes and all related structures ALIGNMENT: Yes alignment normal PERIORBITAL: periorbital findings normal EYELID: eyelids normal CONJUNCTIVA: Yes conjunctivae normal SCLERA: sclerae normal PUPIL: Yes Equal, round and reactive pupils present Neck/C-Spine: COMMON NORMALS: full ROM, no lymphadenopathy, supple, no meningeal signs and no JVD GENERAL: Yes normal visual inspection and Yes trachea midline Chest: COMMONS NORMALS: normal inspection of the chest and normal palpation of entire chest wall Resp: COMMON NORMALS: normal respiratory effort, No retractions, No use of accessory muscles and clear to auscultation bilaterally EFFORT & INSPECTION: Yes able to speak in complete sentences and Yes symmetric chest movement AUSCULTATION: clear to auscultation bilaterally, no crackles, no rales, no rhonchi and no wheezes Cardio: COMMON NORMALS: no JVD, regular rate, regular rhythm, S1 normal heart sound present and S2 normal heart sound present RATE: regular rate RHYTHM: regular rhythm HEART SOUNDS: S1 normal heart sound present, S2 normal heart sound present, no click, no gallops, no murmurs, no rubs and abnormal split S2 GI: COMMON NORMALS: Soft to palpation and No hepatosplenomegaly present PALPATION: Yes Soft to palpation, No Tenderness to palpation present (GI), No Guarding due to palpation present (GI), No Rigid due to palpation, Yes No hepatosplenomegaly present, No Hernia present, No Palpable mass present and No Pulsatile mass present : COMMON NORMALS: Yes no CVA tenderness BLADDER/KIDNEY EXAM: Yes no CVA tenderness EXTERNAL FEMALE EXAM: No Hernia present Back/Pelvis: COMMON NORMALS: no CVA tenderness, thoracic and lumbar spine normal to inspection, no thoracic nor lumbar tenderness and thoraco-lumbar ROM normal Extremity: COMMON NORMALS: normal to inspection, full ROM, capillary refill normal, no joint enlargement, no clubbing, cyanosis or edema and no calf tenderness Neuro: COMMON NORMALS: patient oriented x3, CN's II-XII intact bilaterally, moves all extremities, no focal motor deficits and no sensory deficits noted MENINGEAL SIGNS: Yes no meningeal signs SPEECH: speech normal Psych: COMMON NORMALS: mental status grossly normal, Normal thought process present and cooperative APPEARANCE: Yes well kempt ATTITUDE: Yes engaged ACTIVITY/MOTOR BEHAVIOR: Yes appropriate eye contact SPEECH: Yes rapid MOOD & AFFECT: Yes depressed mood and Yes tearful THOUGHT PROCESS: Normal thought process present THOUGHT CONTENT: Yes Normal thought content present ATTENTION/CONCENTRATION: Yes attention grossly intact MEMORY/COGNITION: Yes memory grossly intact INSIGHT: Fair insight present (Psych) JUDGEMENT: Good judgement present (Psych) Skin: COMMON NORMALS: no rashes or lesions noted, turgor normal, no jaundice, no petechiae and no mottling GENERAL SKIN EXAM: no rashes or lesions noted and turgor normal MDM - Psych MDM Narrative: Medical decision making narrative: Yomi Barakat is a 60-year-old female who comes in with suicidal ideation. She has plans to kill herself and a history of similar problems. I will initiate work-up for medical clearance. Patient's chest pain is atypical in description with no other associated symptoms. Differential is acute coronary syndrome, aortic dissection, pulmonary embolus among many others. Clinically based upon lack of tachycardia, no hypoxia I think PE is unlikely. Patient does not describe ripping or tearing sensation and she has pulses intact throughout so I believe aortic dissection is unlikely. I will go and and initiate cardiac work-up for cardiac clearance. 1313 -Case reviewed with Dr. Jeffries, he agrees that patient second troponin and EKG are normal she can be admitted to the neuropsychiatric unit Lab Data: Labs: Lab Results 07/19/20 07/19/20 07/19/20 Range/Units 11:57 12:16 12:16 WBC 7.2 (4.0-10.0) 10^3/ uL RBC 4.18 (4.1-5.3) 10^6/u L Hgb 13.2 (11.5-15.3) g/dL Hct 40.2 (37.0-47.0) % MCV 96.2 (81-99) fL MCH 31.6 (28.0-34.0) pg MCHC 32.8 (30.0-36.0) g/dL RDW 11.9 L (12.1-15.1) % Plt Count 174 (130-400) 10^3/c mm MPV 11.5 H (7.4-10.4) fL Neut % (Auto) 63.0 % Lymph % (Auto) 25.2 % [place] % (Auto) 7.9 % Eos % (Auto) 2.9 % Baso % (Auto) 0.7 % Neut # (Auto) 4.56 (1.8-7.7) 10^3/u L Lymph # (Auto) 1.8 (0.8-4.8) 10^3/u L [place] # (Auto) 0.6 (0.2-0.9) 10^3/u L Eos # (Auto) 0.2 (0.0-0.8) 10^3/u L Baso # (Auto) 0.1 (0.0-0.1) 10^3/u L Nucleated RBC % (a uto) 0 % Nucleated RBCs # 0.0 /100WBC PT 13.30 (12.1-14.9) SECO NDS INR 0.98 (0.8-1.2) Sodium (136-145) mmol/L Potassium (3.5-5.1) mmol/L Chloride (98-107) mmol/L Carbon Dioxide (22-29) mmol/L Anion Gap (5-19) BUN (8-23) mg/dL Creatinine (0.5-0.9) mg/dL GFR Calculation (90-130) mL/min Glucose (65-115) mg/dL Calculated Osmolal ity (285-295) mOsm/k g Calcium (8.5-10.5) mg/dL Total Bilirubin (0.15-1.2) mg/dL AST (0-32) U/L ALT (0-33) U/L Alkaline Phosphata se (35-105) IU/L Troponin T Baselin e (0-10) ng/L Total Protein (6.6-8.7) g/dL Albumin (3.5-5.2) g/dL Globulin (1.3-4.6) g/dL TSH (0.27-4.20) uIU/ mL Salicylates (3-10) mg/dL Urine Opiates Scre en Negative (Negative) ng/mL Acetaminophen (10-30) ug/mL Ur Barbiturates Sc reen Negative (Negative) ng/mL Ur Phencyclidine S crn Negative (Negative) ng/mL Ur Amphetamines Sc reen Positive H (Negative) ng/mL U Benzodiazepines Scrn Negative (Negative) ng/mL Urine Cocaine Scre en Negative (Negative) ng/mL U Marijuana (THC) Screen Positive H (Negative) ng/mL Ethyl Alcohol (0-10) mg/dL 07/19/20 07/19/20 Range/Units 12:16 12:16 WBC (4.0-10.0) 10^3/ uL RBC (4.1-5.3) 10^6/u L Hgb (11.5-15.3) g/dL Hct (37.0-47.0) % MCV (81-99) fL MCH (28.0-34.0) pg MCHC (30.0-36.0) g/dL RDW (12.1-15.1) % Plt Count (130-400) 10^3/c mm MPV (7.4-10.4) fL Neut % (Auto) % Lymph % (Auto) % [place] % (Auto) % Eos % (Auto) % Baso % (Auto) % Neut # (Auto) (1.8-7.7) 10^3/u L Lymph # (Auto) (0.8-4.8) 10^3/u L [place] # (Auto) (0.2-0.9) 10^3/u L Eos # (Auto) (0.0-0.8) 10^3/u L Baso # (Auto) (0.0-0.1) 10^3/u L Nucleated RBC % (a uto) % Nucleated RBCs # /100WBC PT (12.1-14.9) SECO NDS INR (0.8-1.2) Sodium 138 (136-145) mmol/L Potassium 4.0 (3.5-5.1) mmol/L Chloride 105 (98-107) mmol/L Carbon Dioxide 23 (22-29) mmol/L Anion Gap 14.0 (5-19) BUN 10 (8-23) mg/dL Creatinine 0.9 (0.5-0.9) mg/dL GFR Calculation 63.4 L (90-130) mL/min Glucose 109 (65-115) mg/dL Calculated Osmolal ity 283 L (285-295) mOsm/k g Calcium 8.5 (8.5-10.5) mg/dL Total Bilirubin 1.1 (0.15-1.2) mg/dL AST 25 (0-32) U/L ALT 26 (0-33) U/L Alkaline Phosphata se 95 (35-105) IU/L Troponin T Baselin e 10 (0-10) ng/L Total Protein 6.8 (6.6-8.7) g/dL Albumin 4.2 (3.5-5.2) g/dL Globulin 2.6 (1.3-4.6) g/dL TSH 1.11 (0.27-4.20) uIU/ mL Salicylates < 0.3 L (3-10) mg/dL Urine Opiates Scre en (Negative) ng/mL Acetaminophen < 5.0 L (10-30) ug/mL Ur Barbiturates Sc reen (Negative) ng/mL Ur Phencyclidine S crn (Negative) ng/mL Ur Amphetamines Sc reen (Negative) ng/mL U Benzodiazepines Scrn (Negative) ng/mL Urine Cocaine Scre en (Negative) ng/mL U Marijuana (THC) Screen (Negative) ng/mL Ethyl Alcohol < 10 (0-10) mg/dL EKG Data^: EKG 1: Attestation: I personally reviewed and interpreted this EKG as follows: EKG interpretation date: 07/19/20 EKG interpretation time: 12:11 Interpretation: Normal sinus rhythm at 69 beats a minute, significant baseline artifact present, no acute ST or T wave changes. EKG 2: Attestation: I personally reviewed and interpreted this EKG as follows: EKG interpretation date: 07/19/20 EKG interpretation time: 13:27 Interpretation: Normal sinus at 63 beats a minute, JAVIER present, no with acute ST-T wave changes. No blocks, normal intervals. Discharge Plan Discharge Patient Disposition: Placed in Observation Admit Provider: Frank Jeffries Clinical Impression: Suicidal ideation, Anxiety Chest pain Qualifiers: Chest pain type: unspecified Qualified Code(s): R07.9 - Chest pain, unspecified Condition: Stable Referrals: Kulwant Musa [Primary Care Provider] - Coding Level of Care Code ED [employer] for Chg Fwd Exam Comprehensive
[2020-07-19 12:29] LABS: Basophils # 0.1 10^3/uL (0.0-0.1); Basophils % 0.7 %; Eosinophils # 0.2 10^3/uL (0.0-0.8); Eosinophils % 2.9 %; Hematocrit 40.2 % (37.0-47.0); Hemoglobin 13.2 g/dL (11.5-15.3); Lymphocytes # 1.8 10^3/uL (0.8-4.8); Lymphocytes % 25.2 %; Mean Corpuscular HGB Conc 32.8 g/dL (30.0-36.0); Mean Corpuscular Hemoglobin 31.6 pg (28.0-34.0); Mean Corpuscular Volume 96.2 fL (81-99); Mean Platelet Volume 11.5 fL (7.4-10.4); Monocytes # 0.6 10^3/uL (0.2-0.9); Monocytes % 7.9 %; Neutrophils # 4.56 10^3/uL (1.8-7.7); Nucleated Red Blood Cells % 0 %; Platelet Count 174 10^3/cmm (130-400); Red Blood Count 4.18 10^6/uL (4.1-5.3); Red Cell Distribution Width 11.9 % (12.1-15.1); White Blood Count 7.2 10^3/uL (4.0-10.0)
[2020-07-19 12:41] LABS: INR 0.98 (0.8-1.2)
[2020-07-19 12:45] LABS: Amphetamines Screen Urine Positive (Negative); Barbiturates Screen Urine Negative (Negative); Benzodiazepines Screen Urine Negative (Negative); Cocaine Screen Urine Negative (Negative); Opiate Screen Urine Negative (Negative); PCP Screen Urine Negative (Negative); THC Screen Urine Positive (Negative)
[2020-07-19 12:49] LABS: Troponin(5th) Baseline 10 ng/L (0-10)
[2020-07-19 13:07] LABS: Alanine Aminotransferase 26 U/L (0-33); Albumin Level 4.2 g/dL (3.5-5.2); Alkaline Phosphatase 95 IU/L (35-105); Aspartate Amino Transferase 25 U/L (0-32); Blood Urea Nitrogen 10 mg/dL (8-23); Calcium 8.5 mg/dL (8.5-10.5); Carbon Dioxide 23 mmol/L (22-29); Chloride 105 mmol/L (98-107); Globulin 2.6 g/dL (1.3-4.6); Glomerular Filtration Rate 63.4 mL/min (90-130); Glucose 109 mg/dL (65-115); Osmolality Calculated 283 mOsm/kg (285-295); Sodium 138 mmol/L (136-145); Thyroid Stimulating Hormone 1.11 uIU/mL (0.27-4.20); Total Bilirubin 1.1 mg/dL (0.15-1.2); Total Protein 6.8 g/dL (6.6-8.7)
[2020-07-19 13:08] LABS: Acetaminophen < 5.0 ug/mL (10-30); Alcohol Level < 10 mg/dL (0-10); Salicylate < 0.3 mg/dL (3-10)
[2020-07-19 13:21] VITALS: BP 119/86; PULSE 64; O2SAT 97
--- NOTE | 2020-07-19 13:38 | ECG_ITS ---
[facility] Test Date: 2020-07-19 Pat Name: Tasia Askew Department: Room: 128 Gender: Female [employer]: : 1960 Requested By: Ayana Hope Order Number: [id number] Juarez MD: Renee Norton M.D. Measurements Intervals [place] Rate: 63 P: 68 AR: 192 QRS: 65 QRSD: 88 T: 45 QT: 433 QTc: 445 Interpretive Statements SINUS RHYTHM Compared to ECG 07/19/2020 12:11:00 T-wave abnormality no longer present Electronically Signed On 07-20-2020 20:56:18 CDT by Renee Norton M.D. [id number]
[2020-07-19 14:52] LABS: Troponin 5 2HR 10.85 ng/L (0-10); Troponin 5 2HR Delta 0.85 ABS# (0-10)
[2020-07-19 15:03] VITALS: BP 117/77; PULSE 73; RESP 20; TEMP 37.1; O2SAT 97
--- NOTE | 2020-07-19 15:48 | PC.NURSE ---
DENTURES Upon admission assessment, patient stated she only has top dentures. Patient stated she broke her bottom dentures approximately 1 month ago. Top dentures currently on patient. Cup offered to patient.
[2020-07-19 18:53] LABS: Troponin 5 6HR 9.27 ng/L (0-10)
[2020-07-19 18:55] LABS: Troponin 5 6HR Delta -0.73 ng/L (0-12)
[2020-07-19 20:13] VITALS: BP 98/63; PULSE 61; RESP 20; TEMP 37.1; O2SAT 98
[2020-07-19 20:19] VITALS: PULSE 81; O2SAT 97
[2020-07-19] MEDS: hyDROXYzine 25 mg Capsule 50 MG PO (20:33)
[2020-07-20 06:00] VITALS: BP 113/78; PULSE 63; RESP 18; TEMP 36.5; O2SAT 98
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
[2020-07-20 13:05] LABS: Add Urine Microscopic? YES; Bilirubin Urine Neg (NEGATIVE); Blood Urine 2+ (Negative); Glucose Urine UA Norm (Normal); Ketones Urine Negative (Negative); Leukocyte Esterase Urine Negative (Negative); Nitrate Urine Negative (Negative); Protein Urine Neg (Negative); Specific Gravity, Urine 1.015 (1.005-1.030); Urine Appearance Clear (CLEAR); Urine Color Yellow (Yellow); Urobilinogen Urine Norm (Negative); pH Urine 6 (5-7)
[2020-07-20 13:23] LABS: Add Urine Culture? No; Bacteria Urine TRACE; RBC Urine 0-4 /hpf (0-2)
[2020-07-20 14:00] VITALS: BP 119/71; PULSE 70; RESP 22; TEMP 37.4; O2SAT 96
--- NOTE | 2020-07-20 17:32 | PC.NURSE ---
Patient complains of pain. I offered her 650 MG Tylenol. She refused. Spoke to Dr Jeffries and he asked me to enter an order for 800 MG PO Motrin Q8H. I went and spoke to Tasia and she refused to take the Motrin also. She said she has had so much pain in her life and no one understands what she is going thru.She is angry with the doctor for not providing stronger pain relief. Earlier this afternoon, I did a UA as the patient is complaining of burning pain and flank pain. Stated that was seen in the ED for this and has not been taking her antibiotics. The UA is negative. No antibiotics are ordered at this time.
[2020-07-20 20:23] VITALS: BP 122/75; PULSE 65; RESP 20; TEMP 37.2; O2SAT 97
[2020-07-21 06:00] VITALS: BP 139/95; PULSE 60; RESP 16; TEMP 36.6; O2SAT 97
[2020-07-21 13:37] VITALS: BP 106/67; PULSE 70; RESP 20; TEMP 36.8; O2SAT 96
--- NOTE | 2020-07-21 14:13 | PM.NPN ---
Subjective NPU Subjective: Interval history: Tasia presents today and continues to be fairly resistant to medication or medication trials. She continues to report that if she stops her alcohol and other drug use that she feels things will resolve. We discussed this financial writer is concerned about her lack of outpatient follow-up and That she seems to think wellness is about will power and not about treatment. She reports that she is feeling a little better from a standpoint of withdrawal and is hopeful that she will will even better tomorrow. She reports is eating okay and sleeping is limited. Mental Status Exam MSE Comments: This is an obese, older, white female, with adequate dress, grooming and eye contact. No abnormal movements except for psychomotor retardation. Semi-cooperative with exam in no acute distress. Speech was decreased rate and volume. Mood described as Okay; affect congruent. Thought process, organized. Thought content: patient does endorse suicidal ideation but not homicidal ideation, there were no delusions reported or noted, patient denied any auditory or visual hallucinations. Attention, concentration, and memory appear intact but none were formally tested. She is alert and oriented times three. Insight and judgment are limited. Impulse control is limited. Vitals/I&O/Wt Last Vital Signs Temp 96.8 F L 07/21/20 21:34 Pulse 63 07/21/20 21:34 Resp 14 07/21/20 21:34 BP 128/88 07/21/20 21:34 Pulse Ox 93 07/21/20 21:34 Weight last 48 hrs Weight 101.264 kg Data NPU : 07/19/20 12:16 07/19/20 12:16 A&P Additional A&P Information (1) Depression: (2) Adjustment disorder: (3) Methamphetamine abuse: (4) Cannabis abuse: This is a 60 year old, white female, with anxiety, and in active addiction with a UDS positive for amphetamines and marijuana, who presents currently not endorsing an interest to initiate medication, but wanting to stop her drug use. Continue current medication, and we will continue to offer appropriate medication to assist in her recovery and improvement. Encourage individual, group, and milieu therapy. Continue q-15 minute checks for safety. Recommend sober living treatment at the highest level of care to which the patient is willing to commit. Involuntary Hold Information 96 Hour Hold: 96 Hour Involuntary Admission: No Attestations NPU Medical Necessity Statement*: Inpatient hospitalization is medically necessary and the clinically appropriate intervention, at this time. We will monitor medications and make changes as indicated. Likely length of stay is 3-5 days. Coding Level of Care Code Acute Tanning Solution Maker for Geovanna Rangel
[2020-07-21] MEDS: hyDROXYzine 25 mg Capsule 50 MG PO (21:16)
[2020-07-21 21:34] VITALS: BP 128/88; PULSE 63; RESP 14; TEMP 36; O2SAT 93
[2020-07-22 06:00] VITALS: BP 115/87; PULSE 60; RESP 17; TEMP 36.4; O2SAT 97
--- NOTE | 2020-07-22 13:09 | PM.NPN ---
Subjective NPU Subjective: Interval history: Tasia presents today continuing to demonstrate improvement. She still feeling fairly depressed but is still having limited Focus on her mental health issues and has been using our [facility] lobby for housing and her psychosocial needs.Unfortunately she doesn't understand the system. She talked about possibly her daughter wanting her to go back to the [place] she had been before with his colitis since the way of [place]. She seems to be thinking of more stable housing and not intermediate situation. She seems to have no real resources and the resources that she has had she has squandered with her addiction and poor relationship choices. She reports eating fine and sleeping a little better Mental Status Exam MSE Comments: This is an obese, older, white female, with adequate dress, grooming and eye contact. No abnormal movements except for Improving psychomotor retardation. A little more cooperative with exam in no acute distress. Speech was decreased rate and volume. Mood described as Worried; affect congruent. Thought process, organized. Thought content: patient does endorse suicidal ideation but not homicidal ideation, there were no delusions reported or noted, patient denied any auditory or visual hallucinations. Attention, concentration, and memory appear intact but none were formally tested. She is alert and oriented times three. Insight and judgment are limited. Impulse control is limited. Vitals/I&O/Wt Last Vital Signs Temp 99.0 F 07/22/20 21:25 Pulse 76 07/22/20 21:25 Resp 19 H 07/22/20 21:25 BP 92/49 07/22/20 21:25 Pulse Ox 95 07/22/20 21:25 Weight last 48 hrs Weight 101.264 kg Data NPU : 07/19/20 12:16 07/19/20 12:16 A&P Additional A&P Information (1) Depression: (2) Adjustment disorder: (3) Methamphetamine abuse: (4) Cannabis abuse: This is a 60 year old, white female, with anxiety, and in active addiction with a UDS positive for amphetamines and marijuana, who presents currently not endorsing an interest to initiate medication, but wanting to stop her drug use. Continue current medication, and we will continue to offer appropriate medication to assist in her recovery and improvement. Encourage individual, group, and milieu therapy. Continue q-15 minute checks for safety. Recommend sober living treatment at the highest level of care to which the patient is willing to commit. She continues to be more focused on her psychosocial needs than psychiatric ones. Involuntary Hold Information 96 Hour Hold: 96 Hour Involuntary Admission: No Attestations NPU Medical Necessity Statement*: Inpatient hospitalization is medically necessary and the clinically appropriate intervention, at this time. We will monitor medications and make changes as indicated. Likely length of stay is 2-4 days. Coding Level of Care Code Acute Electric Organ Inspector And Repairer for Geovanna Rangel
[2020-07-22 14:00] VITALS: BP 131/86; PULSE 98; RESP 18; TEMP 37.1; O2SAT 97
[2020-07-22 21:25] VITALS: BP 92/49; PULSE 76; RESP 19; TEMP 37.2; O2SAT 95
--- NOTE | 2020-07-22 22:18 | PC.NURSE ---
Pt offered prn anxiety and sleep med, but refused.
[2020-07-23 06:00] VITALS: BP 113/66; PULSE 57; RESP 18; TEMP 37; O2SAT 97
--- NOTE | 2020-07-23 10:35 | PM.NPN ---
Subjective NPU Subjective: Interval history: I need somebody to find me a place to live. Oh, and my depression. I need something for my depression. Patient stated that she has tolerated Abilify in the past and it has helped her. However she admits that her primary concern is finding a place to live. She has no suggestions or possible strategies to meet that need and feels that it is the obligation of unit staff to do that for her. Patient denied suicidal or homicidal ideation. Mental Status Exam MSE Comments: Mental Status Exam: Appearance: hygiene is fair; no gross neurological deficits., gait is unremarkable; AIMS=0 Speech: Speech is of normal rate and rhythm and easily understood. Thought processes: Thought processes are abstract. Judgment is adequate for safety. Associations: intact Psychotic processes: There is no indication of guarding or paranoia. There is no attention to the internal stimuli. Auditory and visual hallucinations are denied. Judgment: Insight is fair. Problem solving skills are adequate for safety. Orientation: The patient is oriented to person, place time and situation. Memory: no deficits noted in immediate, intermediate, or remote spheres. Attention: The patient is alert and interpersonally engaged. Language: Verbalizations are coherent. Fund of knowledge: Fund of knowledge is adequate. Affect/Mood: Affect is consistent with a depressed mood. pt denies suicidal ideation Affective range is appropriate. Psychosis: perception unimpaired except through cognitive distortion; reality testing intact. Cognition: Level of Consciousness: Awake, Alert, Appropriate and Follows Commands Patient Cognition Impaired: No Ability to Follow Directions: Good Patient Orientation (long list): Person, Place, Time and Name Comprehension Ability: Understands Concepts Hallucination Type: None Delusion Description: Somatic Thought Process: Circumstantial Affect: Affect Description: Calm Behavior: Patient Behavior: Cooperative Speech Pattern: Clear Vitals/I&O/Wt Last Vital Signs Temp 98.6 F 07/23/20 06:00 Pulse 57 L 07/23/20 06:00 Resp 18 07/23/20 06:00 BP 113/66 07/23/20 06:00 Pulse Ox 97 07/23/20 06:00 Weight last 48 hrs Weight 101.264 kg Data NPU : 07/19/20 12:16 07/19/20 12:16 A&P Additional A&P Information Due to the psychiatric conditions and treatment listed in the Assessment and Plan - the patient requires continued hospitalization. Will provide a safe and therapeutic environment for patient.. Will continue inpatient treatment to allow for medication adjustment and monitoring. Will continue q15 min safety checks. Hospital day #3: We will comply with the patient's report that she does well on Abilify 5 mg at bedtime. Review of her history also reveals that she has tolerated mirtazapine in the past. This would interact well with her Abialexy both for sleep and depression. However, she has a well-established pattern of utilizing neuropsychiatric unit for social service needs. For some reason, she has come under the impression that coming into this facility engages a social service system that will find her a place to live. Monitor patient's mood, sleep, appetite, and behavior closely. Encourage patient to participate in individual and group therapeutic sessions on the bardales. Estimated length of stay 5 days The expected benefits and potential side effects of patient's psychiatric medications were discussed with the patient. The patient understands and consents to treatment. CRITERIA FOR DISCHARGE: stable on medications and no longer an imminent threat to self or others Involuntary Hold Information 96 Hour Hold: 96 Hour Involuntary Admission: No Attestations NPU Medical Necessity Statement*: Patient will remain in the hospital another 2-4 nights for assessment of medication efficacy and tolerability. Coding Level of Care Code Acute Claims Technician for Geovanna Rangel
[2020-07-23 14:00] VITALS: BP 114/75; PULSE 64; RESP 15; TEMP 37.2; O2SAT 64
[2020-07-23] MEDS: ARIPiprazole 10 mg Tablet 5 MG PO (20:50)
[2020-07-23] MEDS: mirtazapine 30 mg Tablet PO (20:51)
[2020-07-23 22:00] VITALS: BP 82/42; PULSE 70; RESP 18; TEMP 36.5; O2SAT 96
--- NOTE | 2020-07-23 22:12 | PC.NURSE ---
PRN given @ 2049 Ibprophen 800mg PO for back pain
[2020-07-23 22:25] LABS: Add Urine Microscopic? YES; Bacteria Urine 1+; Bilirubin Urine Neg (NEGATIVE); Blood Urine 2+ (Negative); Glucose Urine UA Norm (Normal); Ketones Urine Negative (Negative); Leukocyte Esterase Urine Trace (Negative); Nitrate Urine Negative (Negative); Protein Urine Neg (Negative); RBC Urine 0-4 /hpf (0-2); Squamous Epithelial Cell Urine 15-25 (0-5); Urine Appearance Clear (CLEAR); Urine Color Yellow (Yellow); Urobilinogen Urine Norm (Negative); pH Urine 5 (5-7)
--- NOTE | 2020-07-23 22:36 | NUR.SHIFT ---
Patient is complaining of fullness and burning when she urinates. Her urinalysis collection is complete pending results. Patient said that her neuropathy pain in her feet is much better. She expressed that she is having night sweats associated with menopause and would like to have some relief from this to help her rest. Her pain is less in her back but requested medication and received Ibprophen 800 Mg PO. She said that she is sleeping more. Her affect is jovial but she seems concerned that she does not have anywhere to live if she left the unit. She expressed interest in working with [facility] to find housing of any kind and is willing to relocate if necessary.
[2020-07-24 06:00] VITALS: BP 112/78; PULSE 68; RESP 17; TEMP 36.6; O2SAT 96
--- NOTE | 2020-07-24 11:26 | PM.NPN ---
Subjective NPU Subjective: Interval history: her primary concern is finding a place to live. She has no suggestions or possible strategies to meet that need and feels that it is the obligation of unit staff to do that for her. Patient denied suicidal or homicidal ideation. Mental Status Exam MSE Comments: Mental Status Exam: Appearance: hygiene is fair; no gross neurological deficits., gait is unremarkable; AIMS=0 Speech: Speech is of normal rate and rhythm and easily understood. Thought processes: Thought processes are abstract. Judgment is adequate for safety. Associations: intact Psychotic processes: There is no indication of guarding or paranoia. There is no attention to the internal stimuli. Auditory and visual hallucinations are denied. Judgment: Insight is fair. Problem solving skills are adequate for safety. Orientation: The patient is oriented to person, place time and situation. Memory: no deficits noted in immediate, intermediate, or remote spheres. Attention: The patient is alert and interpersonally engaged. Language: Verbalizations are coherent. Fund of knowledge: Fund of knowledge is adequate. Affect/Mood: Affect is consistent with a depressed mood. pt denies suicidal ideation Affective range is appropriate. Psychosis: perception unimpaired except through cognitive distortion; reality testing intact. Cognition: Patient Appearance: Appropriate Level of Consciousness: Awake, Alert, Appropriate and Follows Commands Patient Cognition Impaired: No Ability to Follow Directions: Good Patient Orientation (long list): Person, Place, Time and Name Comprehension Ability: Understands Concepts Hallucination Type: None Delusion Description: Not Present Thought Process: Circumstantial Affect: Affect Description: Calm Depressive Symptoms: Unhappiness Behavior: Patient Behavior: Cooperative Speech Pattern: Clear Vitals/I&O/Wt Last Vital Signs Temp 97.9 F 07/24/20 06:00 Pulse 68 07/24/20 06:00 Resp 17 07/24/20 06:00 BP 112/78 07/24/20 06:00 Pulse Ox 96 07/24/20 06:00 Data NPU : 07/19/20 12:16 07/19/20 12:16 A&P Additional A&P Information Due to the psychiatric conditions and treatment listed in the Assessment and Plan - the patient requires continued hospitalization. Will provide a safe and therapeutic environment for patient.. Will continue inpatient treatment to allow for medication adjustment and monitoring. Will continue q15 min safety checks. Hospital day #3: We will comply with the patient's report that she does well on Abilify 5 mg at bedtime. Review of her history also reveals that she has tolerated mirtazapine in the past. This would interact well with her Abilify both for sleep and depression. However, she has a well-established pattern of utilizing neuropsychiatric unit for social service needs. For some reason, she has come under the impression that coming into this facility engages a social service system that will find her a place to live. Hospital day #4: Discharge as soon as she is able to find penitentiary and transportation Monitor patient's mood, sleep, appetite, and behavior closely. Encourage patient to participate in individual and group therapeutic sessions on the bardales. Estimated length of stay 5 days The expected benefits and potential side effects of patient's psychiatric medications were discussed with the patient. The patient understands and consents to treatment. CRITERIA FOR DISCHARGE: stable on medications and no longer an imminent threat to self or others Involuntary Hold Information 96 Hour Hold: 96 Hour Involuntary Admission: No Attestations NPU Medical Necessity Statement*: Patient will remain 1 more night while we find penitentiary transportation. Coding Level of Care Code Acute Assistant Merchandise Manager for Geovanna Rangel
[2020-07-24 14:00] VITALS: BP 100/63; PULSE 72; RESP 18; TEMP 37.2; O2SAT 96
[2020-07-24] MEDS: ARIPiprazole 10 mg Tablet 5 MG PO (20:32)
[2020-07-24] MEDS: mirtazapine 30 mg Tablet PO (20:33)
[2020-07-24] MEDS: ondansetron 4 MG Tablet PO (20:33)
--- NOTE | 2020-07-24 21:19 | PC.NURSE ---
PRNs given @20:00 Ibprophen 800mg PO for back pain @20:33 Zofran 4mg PO for reflux Will continue to monitor patient.
[2020-07-24 22:00] VITALS: BP 106/68; PULSE 68; RESP 17; TEMP 36.6; O2SAT 95
--- NOTE | 2020-07-24 22:23 | PC.NURSE ---
Physician called @[phone]. Spoke to Dr Pravin Whitaker regarding patient's UA results. Patient is in pain and needed control and treatment for UTI. He ordered Bactrim DS PO now and beginning in the morning BID and for pain he is ordering a one time dose of Ultram [address] stated that he would revisit treatment and consider pain control needs at that time
[2020-07-24] MEDS: TRAMadol 50 mg Tablet 100 MG PO (22:33)
[2020-07-24] MEDS: sulfamethoxazole-trimeth DS 160-800 mg Tablet 1 TAB PO (22:34)
--- NOTE | 2020-07-25 01:38 | PC.NURSE ---
Patient was given Ultram for UTI/ flank pain relief. She has been sleeping well since she received the medication.
--- NOTE | 2020-07-25 05:54 | PC.NURSE ---
Follow up on pain control for pt. RE: Ultram 100mg PO given last night Spoke to the patient this morning. She is rested and reports best relief from pain in her flank area, sciatic nerve, spasms, and all. She is very appreciative of Dr. Whitaker's concern and attention to her need. This was a one time dose order. Oncoming nurse may need to request this medication for pain control for evening if Ibprophen 800mg PO or Tylenol 650 PO does not work.
[2020-07-25 06:00] VITALS: BP 108/74; PULSE 53; RESP 17; TEMP 36.7; O2SAT 97
[2020-07-25] MEDS: sulfamethoxazole-trimeth DS 160-800 mg Tablet 1 TAB PO (08:04)
--- NOTE | 2020-07-25 12:55 | P.DS_ITS ---
Diagnoses at Discharge Discharge Diagnosis (1) Urinary tract infection: Status: Acute (2) Anxiety: Status: Chronic Reason for Visit Reason for Visit: SI/ CHEST PAIN Brief History: HPI Narrative: Tasia is a 60-year-old female who comes in stating for the past 2 to 3 days she is felt suicidal. She states that she is back on drugs and alcohol again. She does admit to a plan to kill herself including either overdosing, cutting her wrists, or walking out into traffic. Patient has had previous admissions for psychiatric problems. Patient also complains of chest pain that is been present yesterday and today. She states is due to anxiety. She feels her heart pounding and sharp intermittent pains in the left side of her chest. She has associated shortness of breath but she states that is from smoking so heavily the past few days. She denies any additional symptoms such as diaphoresis, nausea or vomiting, radiation of her pain, worse with exertion or any other aggravating or alleviating factor. The pain is been intermittent. Patient claims this is secondary to her anxiety. Hospital Course Hospital Course Hospital day #5: We will comply with the patient's report that she does well on Abilify 5 mg at bedtime. Review of her history also reveals that she has t olerated mirtazapine in the past. This would interact well with her Abilify both for sleep and depression. However, she has a well-established pattern of utilizing neuropsychiatric unit for social service needs. For some reason, she has come under the impression that coming into this facility engages a social service system that will find her a place to live. Hospital day #6: Discharge as soon as she is able to find intermediate and transportation. U/A positive for UTI. Start Bactrim DS bid * 7 days Involuntary Hold Information 96 Hour Hold: 96 Hour Involuntary Admission: No Mental Status Exam MSE Comments: Discharge Mental Status Exam: Patient is alert interpersonally engaged female appearing approximately her stated age. She is in no apparent distress. She is not believed to be a reliable informant as information provided historically has been quite variable and tailored to her needs at the time. Appearance: hygiene is good; no gross neurological deficits., gait is unremarkable; AIMS=0 Speech: Speech is of normal rate and rhythm and easily understood. Thought processes: Thought processes are abstract. Judgment is adequate for safety. Associations: intact Psychotic processes: There is no indication of guarding or paranoia. There is no attention to the internal stimuli. Auditory and visual hallucinations are denied. Judgment: Insight is fair. Problem solving skills are adequate for safety. Orientation: The patient is oriented to person, place time and situation. Memory: no deficits noted in immediate, intermediate, or remote spheres. Attention: The patient is alert and interpersonally engaged. Language: Verbalizations are coherent. Fund of knowledge: Fund of knowledge is adequate. Affect/Mood: Affect is consistent with a euthymic mood. denied suicidal ideation Affective range is appropriate. Psychosis: perception unimpaired except through cognitive distortion; reality testing intact. Discharge Data Data Completed and Pending: Completed Studies During Hospitalization Category Date Time Status XR chest 1V og ble 53091 Urgent Exams 07/19/20 11:37 Completed Vitals: Last Vital Signs Temp 98.0 F 07/25/20 06:00 Pulse 53 L 07/25/20 06:00 Resp 17 07/25/20 06:00 BP 108/74 07/25/20 06:00 Pulse Ox 97 07/25/20 06:00 Discharge Plan Discharge Patient Disposition: Home Condition: Stable Prescriptions: New sulfamethoxazole-trimethoprim 800-160 mg Tablet 1 tab PO BID Qty: 12 RF: 0 mirtazapine 30 mg Tablet 30 mg PO BEDTIME Qty: 30 RF: 4 aripiprazole 10 mg Tablet 5 mg PO BEDTIME Qty: 30 RF: 4 Continued linaclotide 290 mcg capsule 290 mcg PO DAILY Qty: 90 RF: 3 Vistaril 50 mg capsule 50 mg PO Q8H PRN (Reason: anxiety) Qty: 90 RF: 0 lisinopril 40 mg tablet 40 mg PO DAILY RF: 0 Discontinued nitrofurantoin monohyd/m-cryst [Macrobid] 100 mg capsule 100 mg PO BID 7 Days Qty: 14 RF: 0 Discharge Orders: Discharge Order (Routine); Ordered 07/25/20 Ordered By: Pravin Whitaker Referrals: Kulwant Musa [Primary Care Provider] - Discharge Attestations NPU Time Spent in Discharge Care*: greater than 30 min Coding Level of Care Code Acute Drying Room Attendant for g Fwd Diagnoses Urinary tract infection N39.0 Anxiety F41.9
[2020-07-25 13:12] VITALS: BP 108/74; PULSE 53; RESP 17; TEMP 36.7; O2SAT 97
[2020-07-25 13:24] VITALS: BP 143/85; PULSE 67; RESP 18; TEMP 36.8; O2SAT 97
== END 2020-07-25 14:30 | disposition home or self-care (01) | DRG 881 ==
LOC: ER 13:16 → NP 13:35
PROVIDERS: Emergency Medicine; Psychiatry & Neurology Psychiatry; Admitting Provider Psychiatry & Neurology Psychiatry; PCP Family Medicine; Visit Provider Psychiatry & Neurology Psychiatry
DX: F32.9 Major depressive disorder, single episode, unspecified (principal); R45.851 Suicidal ideations; N39.0 Urinary tract infection, site not specified; F43.20 Adjustment disorder, unspecified; Z59.0 Homelessness; Z91.14 Patient's other noncompliance with medication regimen; E11.9 Type 2 diabetes mellitus without complications; F17.210 Nicotine dependence, cigarettes, uncomplicated; F15.10 Other stimulant abuse, uncomplicated; F12.10 Cannabis abuse, uncomplicated; F41.9 Anxiety disorder, unspecified
CPT/HCPCS: 12345; 36415; 71045; 80053; 80306; 80307; 81001; 84443; 84484; 85025; 85610; 93005; 99284; Q0162

== ENCOUNTER 2020-08-11 16:08 | Inpatient (IN) | payer MEDICARE, SELFPAY ==
[2020-08-11] VITALS (9 sets, daily range): BP systolic 145–169; BP diastolic 60–96; PULSE 74–84; RESP 16–18; TEMP 36.2–36.6; O2SAT 95–99; BMI 34.4
--- NOTE | 2020-08-11 16:13 | ECG_ITS ---
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 Measurements Intervals [place] Rate: 73 P: 70 SC: 177 QRS: 73 QRSD: 83 T: 54 QT: 388 QTc: 429 Interpretive Statements SINUS RHYTHM Compared to ECG 07/19/2020 13:27:22 No significant changes Electronically Signed On 08-11-2020 17:16:47 CDT by Lul Lopez M.D. [id number]
--- NOTE | 2020-08-11 16:15 | USR_ITS ---
PROCEDURE INFORMATION: Exam: US Pelvis Limited, Transabdominal and US Pelvis, Transvaginal Exam date and time: 08/11/2020 4:56 PM Age: 60 years old Clinical indication: Pelvic pain TECHNIQUE: Imaging protocol: Real-time transabdominal and transvaginal pelvic ultrasound (limited) with image documentation. Transvaginal imaging was used for better evaluation of the endometrium and adnexa. COMPARISON: US pelvic with transvaginal 09/24/2019 10:16 AM FINDINGS: Uterus/cervix: The uterus measures 3.8 x 2.4 x 3.7 cm. Endometrial stripe is homogeneous and measures 4 mm. Small incidental nabothian cysts in the cervix. Right adnexa: Right ovary is not visualized. Left adnexa: Left ovary is not visualized. Free fluid: There is no free fluid in the cul-de-sac. US/US pelvis lmt w transvag IMPRESSION: Incidental benign nabothian cysts in the cervix. Otherwise unremarkable postmenopausal pelvic ultrasound. Ovaries are not visualized.
--- NOTE | 2020-08-11 16:27 | W.ED.GENADLT ---
HPI - General Adult General: Chief complaint: Psychiatric Symptoms Stated complaint: PSYCH EVAL Time Seen by Provider: 08/11/20 16:10 Source: patient and EMS Mode of arrival: EMS Limitations: no limitations History of Present Illness: HPI narrative: Tasia is a nice 58-year-old female comes in with 2 complaints. First complaint is that of suicidal ideation. She states she is depressed. She states that she has a plan to cut herself and bleed to . She is had multiple suicide attempts and hospitalizations in the past. She denies any recent ingestions. Complaint is that of left ovarian pain. She feels as though she has a cyst present there. She states she is has in this past. She denies any vaginal discharge or bleeding. Associated symptoms: Deny chest pain, dyspnea, headache(s), nausea, rash, palpitations, syncope or vomiting Review of Systems Const: Denies: fever(s) Eyes: Denies: change in vision or blurry vision ENMT: Denies: throat pain, hoarseness or swelling of lips/tongue Card: Denies: chest pain, palpitations, syncope, pre-syncope or dyspnea on exertion Resp: Denies: dyspnea, productive cough, non-productive cough, wheezing, change in phlegm color or hemoptysis GI: Reports: abdominal pain; Denies: nausea, vomiting or diarrhea : Denies: flank pain, dysuria, urinary frequency or urinary urgency Musc: Denies: neck pain, back pain or extremity pain Skin/Breast: Denies: rash or pruritus Neuro: Denies: headache(s), numbness in extremities, weakness in extremities or dizziness Cj/Lymph: Denies: easy bruising, easy bleeding, petechiae or purpura All/Imm: Denies: urticaria or throat swelling PFS ED PFSH: Medical History Grossman esophagus Diabetes Hypertension Surgical History H/O shoulder surgery History of tonsillectomy Family History Mother Diabetes Social History Smoking and tobacco status: current every day smoker Alcohol intake: former History of recent travel: No Current gender identity: Female Physical Exam Const: COMMON NORMALS: no acute distress, patient oriented x3, no limitations and alert GENERAL APPEARANCE: cooperative HENMT: COMMON NORMALS: normocephalic, atraumatic, external ears normal, EAC's normal and Normal external nose present HEAD & SCALP: normal to inspection, normocephalic and atraumatic FACE & SINUS: normal facial exam and face symmetric NOSE: Normal external nose present and Normal nares present EXTERNAL EAR: Yes external ears normal EXTERNAL AUDITORY CANAL: EAC's normal MOUTH: Normal oral and palatal mucosa present, lip normal and tongue normal Eye: COMMON NORMALS: Equal, round and reactive pupils present and conjunctivae normal GENERAL EYE: appearance normal, both eyes and all related structures ALIGNMENT: Yes alignment normal PERIORBITAL: periorbital findings normal EYELID: eyelids normal CONJUNCTIVA: Yes conjunctivae normal SCLERA: sclerae normal PUPIL: Yes Equal, round and reactive pupils present Neck/C-Spine: COMMON NORMALS: full ROM, no lymphadenopathy, supple, no meningeal signs and no JVD GENERAL: Yes normal visual inspection and Yes trachea midline Chest: COMMONS NORMALS: normal inspection of the chest and normal palpation of entire chest wall Resp: COMMON NORMALS: normal respiratory effort, No retractions, No use of accessory muscles and clear to auscultation bilaterally EFFORT & INSPECTION: Yes able to speak in complete sentences and Yes symmetric chest movement AUSCULTATION: clear to auscultation bilaterally, no crackles, no rales, no rhonchi and no wheezes Cardio: COMMON NORMALS: no JVD, regular rate, regular rhythm, S1 normal heart sound present and S2 normal heart sound present RATE: regular rate RHYTHM: regular rhythm HEART SOUNDS: S1 normal heart sound present, S2 normal heart sound present, no click, no gallops, no murmurs and no rubs GI: COMMON NORMALS: Soft to palpation and No hepatosplenomegaly present PALPATION: Yes Soft to palpation, No Tenderness to palpation present (GI), No Guarding due to palpation present (GI), No Rigid due to palpation, Yes No hepatosplenomegaly present, No Hernia present, No Palpable mass present and No Pulsatile mass present : COMMON NORMALS: Yes no CVA tenderness and Yes normal bimanual exam BLADDER/KIDNEY EXAM: Yes no CVA tenderness EXTERNAL FEMALE EXAM: No Hernia present SPECULUM EXAM - VAGINA: No erythematous, No lesion, No vaginal bleeding and No Vaginal discharge present SPECULUM EXAM - CERVIX: Yes Cervical os closed, No Cervical bleeding, No mucoid cervix and No watery cervix BIMANUAL EXAM - VAGINA & UTERUS: Yes normal bimanual exam OB/EXTERNAL & SPECULUM: No vaginal bleeding Back/Pelvis: COMMON NORMALS: no CVA tenderness, thoracic and lumbar spine normal to inspection, no thoracic nor lumbar tenderness and thoraco-lumbar ROM normal Extremity: COMMON NORMALS: normal to inspection, full ROM, capillary refill normal, no joint enlargement, no clubbing, cyanosis or edema and no calf tenderness Neuro: COMMON NORMALS: patient oriented x3, CN's II-XII intact bilaterally, moves all extremities, no focal motor deficits and no sensory deficits noted SENSORIUM/ORIENTATION: Yes alert MENINGEAL SIGNS: Yes no meningeal signs SPEECH: speech normal Psych: COMMON NORMALS: mental status grossly normal, Normal thought process present, cooperative, normal affect, speech normal and activity/motor behavior normal SPEECH: Yes normal speech THOUGHT PROCESS: Normal thought process present Skin: COMMON NORMALS: no rashes or lesions noted, turgor normal, no jaundice, no petechiae and no mottling GENERAL SKIN EXAM: no rashes or lesions noted and turgor normal Course Vital Signs: Vital signs: Vital Signs Temperature 97.1 F L 08/11/20 16:12 Pulse Rate 84 08/11/20 22:00 Respiratory Rate 18 08/11/20 22:00 Blood Pressure 146/84 08/11/20 22:00 Pulse Oximetry 98 08/11/20 22:00 MDM - General Adult MDM Narrative: Medical decision making narrative: The case was reviewed with Dr. Jeffries, he agrees to accept the patient to the Neuropsych Unit. At this time I see no evidence of tubo-ovarian abscess, ovarian cyst, kidney stone or other acute abdominal pathology to cause the patient's left lower quadrant pain. Further care be dictated by Dr. Jeffries. Lab Data: Labs: Lab Results 08/11/20 08/11/20 08/11/20 Range/Units 16:19 16:19 16:19 WBC (4.0-10.0) 10^3/ uL RBC (4.1-5.3) 10^6/u L Hgb (11.5-15.3) g/dL Hct (37.0-47.0) % MCV (81-99) fL MCH (28.0-34.0) pg MCHC (30.0-36.0) g/dL RDW (12.1-15.1) % Plt Count (130-400) 10^3/c mm MPV (7.4-10.4) fL Neut % (Auto) % Lymph % (Auto) % Hamblen % (Auto) % Eos % (Auto) % Baso % (Auto) % Neut # (Auto) (1.8-7.7) 10^3/u L Lymph # (Auto) (0.8-4.8) 10^3/u L Hamblen # (Auto) (0.2-0.9) 10^3/u L Eos # (Auto) (0.0-0.8) 10^3/u L Baso # (Auto) (0.0-0.1) 10^3/u L Nucleated RBC % (a uto) % Nucleated RBCs # /100WBC Sodium (136-145) mmol/L Potassium (3.5-5.1) mmol/L Chloride (98-107) mmol/L Carbon Dioxide (22-29) mmol/L Anion Gap (5-19) BUN (8-23) mg/dL Creatinine (0.5-0.9) mg/dL GFR Calculation (90-130) mL/min Glucose (65-115) mg/dL Calculated Osmolal ity (285-295) mOsm/k g Calcium (8.5-10.5) mg/dL Total Bilirubin (0.15-1.2) mg/dL AST (0-32) U/L ALT (0-33) U/L Alkaline Phosphata se (35-105) IU/L Total Protein (6.6-8.7) g/dL Albumin (3.5-5.2) g/dL Globulin (1.3-4.6) g/dL TSH (0.27-4.20) uIU/ mL HCG, Qual Negative (Negative) Urine Color Dark yellow (Yellow) Urine Appearance Clear (CLEAR) Urine pH 5 (5-7) Ur Specific Gravit y 1.025 (1.005-1.030) Urine Protein Neg (Negative) Urine Glucose (UA) Norm (Normal) Urine Ketones 1+ H (Negative) Urine Blood 2+ H (Negative) Urine Nitrate Negative (Negative) Urine Bilirubin 1+ H (Negative) Urine Urobilinogen 1 H (Negative) mg/dL Ur Leukocyte Lisa ase Negative (Negative) Urine RBC 5-10 H (0-2) /hpf Urine WBC Rare (0-5) /hpf Ur Squamous Epith Cells 5-10 H (0-5) /hpf Amorphous Sediment Not Reportable Urine Bacteria Trace (NONE) /hpf Urine Mucus 1+ /hpf Salicylates (3-10) mg/dL Urine Opiates Scre en Negative (Negative) ng/mL Acetaminophen (10-30) ug/mL Ur Barbiturates Sc reen Negative (Negative) ng/mL Ur Phencyclidine S crn Negative (Negative) ng/mL Ur Amphetamines Sc reen Negative (Negative) ng/mL U Benzodiazepines Scrn Negative (Negative) ng/mL Urine Cocaine Scre en Negative (Negative) ng/mL U Marijuana (THC) Screen Positive H (Negative) ng/mL Ethyl Alcohol (0-10) mg/dL 08/11/20 08/11/20 08/11/20 Range/Units 16:34 16:34 16:34 WBC 7.2 (4.0-10.0) 10^3/ uL RBC 4.27 (4.1-5.3) 10^6/u L Hgb 13.7 (11.5-15.3) g/dL Hct 41.3 (37.0-47.0) % MCV 96.7 (81-99) fL MCH 32.1 (28.0-34.0) pg MCHC 33.2 (30.0-36.0) g/dL RDW 12.6 (12.1-15.1) % Plt Count 208 (130-400) 10^3/c mm MPV 10.6 H (7.4-10.4) fL Neut % (Auto) 60.4 % Lymph % (Auto) 26.8 % Hamblen % (Auto) 8.1 % Eos % (Auto) 3.6 % Baso % (Auto) 0.8 % Neut # (Auto) 4.33 (1.8-7.7) 10^3/u L Lymph # (Auto) 1.9 (0.8-4.8) 10^3/u L Hamblen # (Auto) 0.6 (0.2-0.9) 10^3/u L Eos # (Auto) 0.3 (0.0-0.8) 10^3/u L Baso # (Auto) 0.1 (0.0-0.1) 10^3/u L Nucleated RBC % (a uto) 0 % Nucleated RBCs # 0.0 /100WBC Sodium 138 (136-145) mmol/L Potassium 4.0 (3.5-5.1) mmol/L Chloride 105 (98-107) mmol/L Carbon Dioxide 24 (22-29) mmol/L Anion Gap 13.0 (5-19) BUN 10 (8-23) mg/dL Creatinine 0.8 (0.5-0.9) mg/dL GFR Calculation 72.7 L (90-130) mL/min Glucose 126 H (65-115) mg/dL Calculated Osmolal ity 287 (285-295) mOsm/k g Calcium 9.0 (8.5-10.5) mg/dL Total Bilirubin 1.0 (0.15-1.2) mg/dL AST 20 (0-32) U/L ALT 24 (0-33) U/L Alkaline Phosphata se 109 H (35-105) IU/L Total Protein 7.1 (6.6-8.7) g/dL Albumin 4.0 (3.5-5.2) g/dL Globulin 3.1 (1.3-4.6) g/dL TSH 1.48 (0.27-4.20) uIU/ mL HCG, Qual Cancelled (Negative) Urine Color (Yellow) Urine Appearance (CLEAR) Urine pH (5-7) Ur Specific Gravit y (1.005-1.030) Urine Protein (Negative) Urine Glucose (UA) (Normal) Urine Ketones (Negative) Urine Blood (Negative) Urine Nitrate (Negative) Urine Bilirubin (Negative) Urine Urobilinogen (Negative) mg/dL Ur Leukocyte Lisa ase (Negative) Urine RBC (0-2) /hpf Urine WBC (0-5) /hpf Ur Squamous Epith Cells (0-5) /hpf Amorphous Sediment Urine Bacteria (NONE) /hpf Urine Mucus /hpf Salicylates < 0.3 L (3-10) mg/dL Urine Opiates Scre en (Negative) ng/mL Acetaminophen < 5.0 L (10-30) ug/mL Ur Barbiturates Sc reen (Negative) ng/mL Ur Phencyclidine S crn (Negative) ng/mL Ur Amphetamines Sc reen (Negative) ng/mL U Benzodiazepines Scrn (Negative) ng/mL Urine Cocaine Scre en (Negative) ng/mL U Marijuana (THC) Screen (Negative) ng/mL Ethyl Alcohol < 10 (0-10) mg/dL Imaging Data^: US: Radiologist's impression: [address] [address] Ultrasound Report Signed Patient: Tasia Askew Unit #: [id number] : 1960 Age/Sex: 60 / F ADM Date: 08/11/20 Loc: ER Room/Bed: Attending Dr: Ordering Provider/Ordering MD: Ayana Cedillo DO Date of Service: 08/11/20 Procedure(s): US pelvis lmt w transvag Accession Number(s): [id number] Report Number: [id number] PROCEDURE INFORMATION: Exam: US Pelvis Limited, Transabdominal and US Pelvis, Transvaginal Exam date and time: 08/11/2020 4:56 PM Age: 60 years old Clinical indication: Pelvic pain TECHNIQUE: Imaging protocol: Real-time transabdominal and transvaginal pelvic ultrasound (limited) with image documentation. Transvaginal imaging was used for better evaluation of the endometrium and adnexa. COMPARISON: US pelvic with transvaginal 09/24/2019 10:16 AM FINDINGS: Uterus/cervix: The uterus measures 3.8 x 2.4 x 3.7 cm. Endometrial stripe is homogeneous and measures 4 mm. Small incidental nabothian cysts in the cervix. Right adnexa: Right ovary is not visualized. Left adnexa: Left ovary is not visualized. Free fluid: There is no free fluid in the cul-de-sac. US/US pelvis lmt w transvag IMPRESSION: Incidental benign nabothian cysts in the cervix. Otherwise unremarkable postmenopausal pelvic ultrasound. Ovaries are not visualized. Dictated By: Sierra Vazquez MD Signed By: Sierra Vazquez MD Signed Date/Time: 08/11/20 1719 DD/ 17 CT Abd/Pel: Radiologist's impression: [facility] [address] [place] [address] CT Scan Report Signed Patient: Tasia Askew Unit #: [id number] : 1960 Age/Sex: 60 / F ADM Date: 08/11/20 Loc: ER Room/Bed: Attending Dr: Ordering Provider/Ordering MD: Ayana Cedillo DO Date of Service: 08/11/20 Procedure(s): CT abdomen pelvis w con* [id number] Accession Number(s): [id number] Report Number: [id number] PROCEDURE INFORMATION: Exam: CT Abdomen And Pelvis With Contrast Exam date and time: 08/11/2020 6:01 PM Age: 60 years old Clinical indication: Abdominal pain; Localized; Left lower quadrant (llq); Prior surgery; Surgery date: 6+ months; Surgery type: Tubal; Patient HX: C/O llq abd pain w HX of ovarian cyst TECHNIQUE: Imaging protocol: Computed tomography of the abdomen and pelvis with intravenous contrast. Radiation optimization: All CT scans at this facility use at least one of these dose optimization techniques: automated exposure control; mA and/or kV adjustment per patient size (includes targeted exams where dose is matched to clinical indication); or iterative reconstruction. Contrast material: OMNI 300; Contrast volume: 95 ml; Contrast route: INTRAVENOUS (IV); COMPARISON: CT abdomen pelvis w con* [id number] 12/24/2019 6:59 AM RADIATION DOSE METRICS: Total DLP (mGy-cm): 1303.69 FINDINGS: Liver: Normal. No mass. Gallbladder and bile ducts: Normal. No calcified stones. No ductal dilation. Pancreas: Mild fatty atrophy of the pancreas. Spleen: Normal. No splenomegaly. Adrenals: Normal. No mass. Kidneys and ureters: Normal. No hydronephrosis. Stomach and bowel: There is diverticulosis of the colon without evidence of diverticulitis. Appendix: A normal appendix is identified. Intraperitoneal space: Unremarkable. No free air. No significant fluid collection. Vasculature: Unremarkable. No abdominal aortic aneurysm. Lymph nodes: Unremarkable. No enlarged lymph nodes. Bladder: Unremarkable as visualized. Reproductive: There are tubal ligation changes. Bones/joints: There are degenerative changes in the visualized spine. There is a transitional lumbosacral vertebra. Lower lumbar disc osteophyte complexes contribute to bilateral neural foraminal narrowing. Soft tissues: There are benign-appearing soft tissue calcifications. Other findings: Moderate stool burden. CT/CT abdomen pelvis w con* [id number] IMPRESSION: No acute findings.Non acute findings as described above. 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
[2020-08-11 16:38] LABS: Basophils # 0.1 10^3/uL (0.0-0.1); Basophils % 0.8 %; Eosinophils # 0.3 10^3/uL (0.0-0.8); Eosinophils % 3.6 %; Hematocrit 41.3 % (37.0-47.0); Hemoglobin 13.7 g/dL (11.5-15.3); Lymphocytes # 1.9 10^3/uL (0.8-4.8); Lymphocytes % 26.8 %; Mean Corpuscular HGB Conc 33.2 g/dL (30.0-36.0); Mean Corpuscular Hemoglobin 32.1 pg (28.0-34.0); Mean Corpuscular Volume 96.7 fL (81-99); Mean Platelet Volume 10.6 fL (7.4-10.4); Monocytes # 0.6 10^3/uL (0.2-0.9); Monocytes % 8.1 %; Neutrophils # 4.33 10^3/uL (1.8-7.7); Neutrophils % 60.4 %; Nucleated Red Blood Cells % 0 %; Platelet Count 208 10^3/cmm (130-400); Red Blood Count 4.27 10^6/uL (4.1-5.3); Red Cell Distribution Width 12.6 % (12.1-15.1); White Blood Count 7.2 10^3/uL (4.0-10.0)
[2020-08-11 17:10] LABS: Alanine Aminotransferase 24 U/L (0-33); Alkaline Phosphatase 109 IU/L (35-105); Aspartate Amino Transferase 20 U/L (0-32); Blood Urea Nitrogen 10 mg/dL (8-23); Carbon Dioxide 24 mmol/L (22-29); Chloride 105 mmol/L (98-107); Globulin 3.1 g/dL (1.3-4.6); Glomerular Filtration Rate 72.7 mL/min (90-130); Glucose 126 mg/dL (65-115); Osmolality Calculated 287 mOsm/kg (285-295); Sodium 138 mmol/L (136-145); Thyroid Stimulating Hormone 1.48 uIU/mL (0.27-4.20); Total Protein 7.1 g/dL (6.6-8.7)
[2020-08-11 17:15] LABS: Glucose Urine UA Norm (Normal); Ketones Urine 1+ (Negative); Protein Urine Neg (Negative); Specific Gravity, Urine 1.025 (1.005-1.030); Urine Appearance Clear (CLEAR); Urine Color Dark Yellow (Yellow); pH Urine 5 (5-7)
[2020-08-11 17:16] LABS: Add Urine Culture? No; Add Urine Microscopic? YES; Bacteria Urine TRACE /hpf; Bilirubin Urine 1+ (Negative); Blood Urine 2+ (Negative); Leukocyte Esterase Urine Negative (Negative); Mucus Urine 1+ /hpf; Nitrate Urine Negative (Negative); Urobilinogen Urine 1 mg/dL (Negative); WBC Urine RARE /hpf (0-5)
[2020-08-11 17:17] LABS: Amphetamines Screen Urine Negative (Negative); Barbiturates Screen Urine Negative (Negative); Benzodiazepines Screen Urine Negative (Negative); Cocaine Screen Urine Negative (Negative); Opiate Screen Urine Negative (Negative); PCP Screen Urine Negative (Negative); THC Screen Urine Positive (Negative)
[2020-08-11 17:32] LABS: HCG Qualitative Urine. Negative (Negative)
[2020-08-11 17:33] LABS: Acetaminophen < 5.0 ug/mL (10-30); Alcohol Level < 10 mg/dL (0-10); Salicylate < 0.3 mg/dL (3-10)
--- NOTE | 2020-08-11 17:40 | CTR_ITS ---
PROCEDURE INFORMATION: Exam: CT Abdomen And Pelvis With Contrast Exam date and time: 08/11/2020 6:01 PM Age: 60 years old Clinical indication: Abdominal pain; Localized; Left lower quadrant (llq); Prior surgery; Surgery date: 6+ months; Surgery type: Tubal; Patient HX: C/O llq abd pain w HX of ovarian cyst TECHNIQUE: Imaging protocol: Computed tomography of the abdomen and pelvis with intravenous contrast. Radiation optimization: All CT scans at this facility use at least one of these dose optimization techniques: automated exposure control; mA and/or kV adjustment per patient size (includes targeted exams where dose is matched to clinical indication); or iterative reconstruction. Contrast material: OMNI 300; Contrast volume: 95 ml; Contrast route: INTRAVENOUS (IV); COMPARISON: CT abdomen pelvis w con* [id number] 12/24/2019 6:59 AM RADIATION DOSE METRICS: Total DLP (mGy-cm): 1303.69 FINDINGS: Liver: Normal. No mass. Gallbladder and bile ducts: Normal. No calcified stones. No ductal dilation. Pancreas: Mild fatty atrophy of the pancreas. Spleen: Normal. No splenomegaly. Adrenals: Normal. No mass. Kidneys and ureters: Normal. No hydronephrosis. Stomach and bowel: There is diverticulosis of the colon without evidence of diverticulitis. Appendix: A normal appendix is identified. Intraperitoneal space: Unremarkable. No free air. No significant fluid collection. Vasculature: Unremarkable. No abdominal aortic aneurysm. Lymph nodes: Unremarkable. No enlarged lymph nodes. Bladder: Unremarkable as visualized. Reproductive: There are tubal ligation changes. Bones/joints: There are degenerative changes in the visualized spine. There is a transitional lumbosacral vertebra. Lower lumbar disc osteophyte complexes contribute to bilateral neural foraminal narrowing. Soft tissues: There are benign-appearing soft tissue calcifications. Other findings: Moderate stool burden. CT/CT abdomen pelvis w con* [id number] IMPRESSION: No acute findings.Non acute findings as described above. Radiation Dose CTDIVOL = (mGy): DLP = 1303.69 (mGy-cm)
[2020-08-11] MEDS: iohexol 300 mg/mL 100 mL Btl IV (18:26)
[2020-08-11] MEDS: HYDROmorphone 1 mg/mL INJ 1 mL 0.5 MG IVP (19:28)
--- NOTE | 2020-08-11 19:30 | PC.NURSE ---
pt states she will harm herself by cutting if discharged. notified
--- NOTE | 2020-08-11 21:20 | PC.NURSE ---
unable to witness 0.5mg in pyxis due to technical issues with [employer]. Vial given to Crow Huddleston tech, witnessed by Katherine Mccracken RN
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
[2020-08-12 06:00] VITALS: BP 132/75; PULSE 68; RESP 19; TEMP 36.8; O2SAT 95
[2020-08-12] MEDS: metoclopramide 10 mg Tablet PO (10:05)
[2020-08-12] MEDS: OLANZapine 5 mg ODT PO (10:23)
--- NOTE | 2020-08-12 10:23 | PC.NURSE ---
PRN ZYPREXA ZYDIS ZYPREXA ZYDIS 5MG PO PER PATIENT C/O ANXIETY/AGITATION. WILL CONTINUE TO MONITOR FOR MEDICATION EFFECTIVENESS.
--- NOTE | 2020-08-12 11:30 | PC.NURSE ---
PRN ZYPREXA ZYDIS FOLLOW UP MEDICATION EFFECTIVE. NO FURTHER C/O ANXIETY/AGITATION. PATIENT IS LYING IN BED RESTING. RESPIRATIONS EVEN AND UNLABORED.
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
[2020-08-12 14:00] VITALS: BP 105/69; PULSE 71; RESP 18; TEMP 37.6; O2SAT 97
[2020-08-12 20:45] VITALS: BP 96/60; PULSE 64; RESP 18; TEMP 36.8; O2SAT 95
[2020-08-12] MEDS: ARIPiprazole 10 mg Tablet 5 MG PO (21:37)
[2020-08-12] MEDS: mirtazapine 30 mg Tablet PO (21:37)
[2020-08-13 06:00] VITALS: BP 137/84; PULSE 64; RESP 18; TEMP 37.1; O2SAT 97
[2020-08-13 06:30] LABS: Glucose Point of Care 103 mg/dL (70-110)
[2020-08-13] MEDS: ARIPiprazole 10 mg Tablet 5 MG PO ×2 (07:50→20:20)
[2020-08-13] MEDS: metoclopramide 10 mg Tablet PO (07:50)
[2020-08-13 10:01] VITALS: BP 137/84; PULSE 64; RESP 18; TEMP 37.1; O2SAT 97
[2020-08-13 13:26] VITALS: BP 148/76; PULSE 81; RESP 18; TEMP 37.1; O2SAT 98
--- NOTE | 2020-08-13 14:31 | PM.NPN ---
Subjective NPU Subjective: Interval history: Tasia presented today a little less irritable and continuing to report a need to be in the hospital. We discussed the inability of the system to keep her inpatient while she figures out her housing situation. She is working with the treatment team for housing options and will allow for discharge tomorrow. She is frustrated with the way the system is working and that she is 60 years old and not able to have a stable place to live. Mental Status Exam MSE Comments: This is an obese, older, white female, with adequate dress, grooming and eye contact. No abnormal movements except for lessening psychomotor agitation. Semi-cooperative with exam in mild distress. Speech was more normal rate and volume. Mood described as not happy; affect congruent. Thought process, organized. Thought content: patient does mention suicidal ideation but not homicidal ideation, there were no delusions reported or noted, patient denied any auditory or visual hallucinations. Attention, concentration, and memory is unreliable but none were formally tested. She is alert and oriented times three. Insight and judgment are limited. Impulse control is limited. Vitals/I&O/Wt Last Vital Signs Temp 98.7 F 08/13/20 13:26 Pulse 81 08/13/20 13:26 Resp 18 08/13/20 13:26 BP 148/76 08/13/20 13:26 Pulse Ox 98 08/13/20 13:26 Weight last 48 hrs Weight 99.79 kg Data NPU : 08/11/20 16:34 08/11/20 16:34 A&P Additional A&P Information (1) Depression: (2) Adjustment disorder: (3) Methamphetamine abuse: (4) Cannabis abuse: This is a 60 year old, white female, with anxiety, and active addiction with a UDS positive for marijuana, who presents currently not endorsing any interest to make any medication changes, and wanting assistance with finding a place.. Continue current medication. Encourage individual, group, and milieu therapy. Continue q-15 minute checks for safety. Recommend sober living treatment at the highest level of care to which the patient is willing to commit. she reports some suicidal thoughts but clearly seems to be driven by her homelessness. Involuntary Hold Information 96 Hour Hold: 96 Hour Involuntary Admission: No Attestations NPU Medical Necessity Statement*: Inpatient hospitalization is medically necessary and the clinically appropriate intervention, at this time. We will monitor medications and make changes as indicated. Tentative plan for discharge tomorrow. Coding Level of Care Code Acute Textile Engineer for Geovanna Rangel
--- NOTE | 2020-08-13 18:15 | PC.RESP ---
Smoking Cessation information sent to patient.
[2020-08-13] MEDS: mirtazapine 30 mg Tablet PO (20:20)
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
[2020-08-13 21:55] VITALS: BP 109/65; PULSE 76; RESP 18; TEMP 36.6; O2SAT 96
[2020-08-14 06:00] VITALS: BP 113/74; PULSE 76; RESP 17; TEMP 36.4; O2SAT 96
[2020-08-14 06:43] LABS: Glucose Point of Care 124 mg/dL (70-110)
[2020-08-14] MEDS: metoclopramide 10 mg Tablet PO (08:30)
[2020-08-14] MEDS: ARIPiprazole 10 mg Tablet 5 MG PO (08:31)
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
== END 2020-08-14 11:45 | disposition home or self-care (01) | DRG 880 ==
LOC: ER 19:30 → NP 20:02
PROVIDERS: Emergency Medicine; Admitting Provider Psychiatry & Neurology Psychiatry; PCP Family Medicine; Visit Provider Psychiatry & Neurology Psychiatry
DX: F41.8 Other specified anxiety disorders (principal); R45.851 Suicidal ideations; F17.210 Nicotine dependence, cigarettes, uncomplicated
CPT/HCPCS: 12345; 36416; 74177; 76830; 76857; 80053; 80306; 80307; 81001; 81025; 82962; 84443; 85025; 87210; 93005; 99285; G0378; J1170; J8597; Q9967